=== PATIENT | female | born 1985 | race Caucasian/White ===

== ENCOUNTER 2020-01-22 10:29 | Outpatient (REF) | payer OTHER, SELFPAY | END 2020-01-22 10:30 | disposition home or self-care (01) | LOC: HO.LAB 10:29 | PROVIDERS: PCP Internal Medicine; Referring Provider Internal Medicine; Visit Provider Obstetrics & Gynecology | DX: R87.610 Atypical squamous cells of undetermined significance on cytologic smear of cervix (ASC-US) (principal) | CPT/HCPCS: 88305 ==

== ENCOUNTER → 2020-03-15 15:27 | Outpatient (BNVA) | payer OTHER, SELFPAY | PROVIDERS: Visit Provider Obstetrics & Gynecology | DX: Z76.89 Persons encountering health services in other specified circumstances (principal) ==

== ENCOUNTER → 2020-03-22 11:25 | Outpatient (BNVA) | payer OTHER, SELFPAY | PROVIDERS: Visit Provider Obstetrics & Gynecology | DX: Z76.89 Persons encountering health services in other specified circumstances (principal) ==

== ENCOUNTER → 2020-12-07 13:07 | Outpatient (BNV) | payer OTHER, SELFPAY | PROVIDERS: PCP Internal Medicine; Referring Provider Internal Medicine; Visit Provider Internal Medicine | DX: D50.0 Iron deficiency anemia secondary to blood loss (chronic) (principal); N92.0 Excessive and frequent menstruation with regular cycle | CPT/HCPCS: 99203; 99213; G2211 ==

== ENCOUNTER 2020-12-27 08:11 | Outpatient (REF) | payer OTHER, SELFPAY | END 2020-12-27 08:12 | disposition home or self-care (01) | LOC: HO.MDS 08:11 | PROVIDERS: PCP Internal Medicine; Visit Provider Internal Medicine | DX: D50.9 Iron deficiency anemia, unspecified (principal) | CPT/HCPCS: 96365; 96366; J1200; J1750; Q0163 ==

== ENCOUNTER 2021-02-15 11:53 | Outpatient (REF) | payer OTHER, SELFPAY ==
[2021-02-15 14:21] LABS: Hematocrit 39.8 % (37.0-47.0); Imm Gran Abs Auto 0.03 X10*3/uL (0.00-0.03); Imm Gran Pct Auto 0.5 % (0.0-0.4); MANUAL DIFF FLAG SCAN; SCAN SMEAR FLAG 1
[2021-02-15 14:23] LABS: Basophils Percent Auto 0.3 % (0-2); Eosinophils Absolute Auto 0.1 X10*3/uL (0.0-0.4); Eosinophils Percent Auto 0.8 % (0-4); Hemoglobin 12.4 g/dl (12.0-16.0); Lymphocytes Absolute Auto 0.8 X10*3/uL (1.2-4.9); Lymphocytes Percent Auto 12.1 % (20-40); Mean Corpuscular HGB Conc 31.2 g/dl (31.0-35.0); Mean Corpuscular Hemoglobin 24.9 pg (27.0-33.0); Mean Corpuscular Volume 80.1 fL (80.0-98.0); Mean Platelet Volume 11.3 fL (9.4-12.3); Monocytes Absolute Auto 0.3 X10*3/uL (0.1-1.2); Monocytes Percent Auto 4.7 % (2-11); Neutrophils Percent Auto 81.6 % (45-73); Platelet Count 219 X10*3/uL (160-400); Red Blood Count 4.97 X10*6/uL (4.20-5.50); Red Cell Distribution Width 21.1 % (11.0-16.0); White Blood Count 6.2 X10*3/uL (4.8-10.8)
[2021-02-15 14:24] LABS: PLT ABN DIST 1
[2021-02-15 14:41] LABS: Alanine Aminotransferase 13 U/L (0-31); Albumin Level 4.2 g/dL (3.5-5.0); Alkaline Phosphatase 67 U/L (39-117); Anion Gap 14 (12-20); Aspartate Amino Transferase 14 U/L (5-31); Bilirubin Total 0.4 mg/dL (0.0-1.0); Blood Urea Nitrogen 8 mg/dL (9-16); Calcium 9.4 mg/dL (8.4-10.2); Carbon Dioxide 23 mmol/L (22-29); Chloride 106 mmol/L (96-108); Estimated Glomerular Filt Rate > 60; Glucose Random 92 mg/dL (60-115); Iron 33 mcg/dL (30-160); Percent Iron Saturation 12 % (15-50); Potassium 4.3 mmol/L (3.3-5.1); Sodium 139 mmol/L (135-145); Total Iron Binding Capacity 269 mcg/dL (228-428); Unsaturated Iron Binding 236 ug/dL
[2021-02-15 14:55] LABS: SLIDE REVIEW VERIFIED; Vitamin B12 392 pg/mL (200-900)
[2021-02-15 15:05] LABS: TSH reflex Free T4 1.29 uIU/mL (0.32-4.0)
[2021-02-18 13:27] LABS: Vitamin D 25-OH, D2 <4 ng/mL; Vitamin D 25-OH, D3 22 ng/mL; Vitamin D 25-OH, Total 22 ng/mL (30-100)
== END 2021-02-15 11:54 | disposition home or self-care (01) ==
LOC: HO.HMGCLDS 11:53
PROVIDERS: PCP Internal Medicine; Visit Provider Obstetrics & Gynecology
DX: F41.1 Generalized anxiety disorder (principal); R53.83 Other fatigue; D64.9 Anemia, unspecified
CPT/HCPCS: 36415; 80053; 82306; 82607; 83540; 84443; 85025

== ENCOUNTER 2021-12-15 14:48 | Outpatient (REF) | payer OTHER, SELFPAY ==
[2021-12-15 15:47] LABS: Influenza A PCR NEGATIVE (Negative); Influenza B PCR NEGATIVE (Negative); Resp Syncy Virus RNA Qual PCR NEGATIVE (Negative); SARS COV2 PCR INHOUSE POSITIVE (Negative)
== END 2021-12-15 14:49 | disposition home or self-care (01) ==
LOC: HO.LNP 14:48
DX: Z20.822 Contact with and (suspected) exposure to COVID-19 (principal); J02.9 Acute pharyngitis, unspecified
CPT/HCPCS: 0241U

== ENCOUNTER 2022-05-25 09:47 | Emergency (ER) | payer OTHER, SELFPAY ==
--- NOTE | 2022-05-25 09:50 | ECG_ITS ---
Test Reason : chest pain Blood Pressure : / mmHG Vent. Rate : 074 BPM Atrial Rate : 074 BPM P-R Int : 108 ms QRS Dur : 080 ms QT Int : 354 ms P-R-T Axes : 026 042 022 degrees QTc Int : 392 ms Sinus rhythm with short WA Otherwise normal ECG No previous ECGs available Referred By: Generic ED Physician Electronically Signed By:Johnathan Black
[2022-05-25 09:57] VITALS: BP 127/73; PULSE 71; RESP 18; TEMP 36.6; O2SAT 98; BMI 39.9
[2022-05-25 10:27] LABS: Imm Gran Abs Auto 0.02 X10*3/uL (0.00-0.03); Mean Corpuscular Hemoglobin 17.7 pg (27.0-33.0); Red Cell Distribution Width 19.9 % (11.0-16.0); SCAN SMEAR FLAG 1
[2022-05-25 10:29] LABS: Basophils Percent Auto 0.4 % (0-2); Eosinophils Percent Auto 0.7 % (0-4); Hematocrit 30.5 % (37.0-47.0); Hemoglobin 8.5 g/dl (12.0-16.0); Imm Gran Pct Auto 0.4 % (0.0-0.4); Lymphocytes Absolute Auto 0.8 X10*3/uL (1.2-4.9); Lymphocytes Percent Auto 14.8 % (20-40); MANUAL DIFF FLAG SCAN; Mean Corpuscular HGB Conc 27.9 g/dl (31.0-35.0); Monocytes Absolute Auto 0.4 X10*3/uL (0.1-1.2); Neutrophils Absolute Auto 4.3 x10*3/uL (2.0-8.3); Neutrophils Percent Auto 76.7 % (45-73); Platelet Count 400 X10*3/uL (160-400); White Blood Count 5.6 X10*3/uL (4.8-10.8)
[2022-05-25 10:32] LABS: Mean Corpuscular Volume 63.5 fL (80.0-98.0); PLT ABN DIST 1
[2022-05-25 10:40] LABS: Appearance Urine Clear; Color Urine Yellow; Glucose Urine UA Negative (Negative); Leukocyte Esterase Urine Negative (Negative); Nitrite Urine Negative (Negative); PH 7.5 (5.0-9.0); Specific Gravity - Urine 1.015 (1.005-1.025); Urine Blood Negative (Negative); Urine Ketones Negative (Negative); Urine Protein Negative (Neg-Trace)
[2022-05-25 10:41] LABS: UPreg QC Valid YES; Urine Pregnancy NEGATIVE (NEGATIVE)
[2022-05-25 10:49] LABS: SLIDE REVIEW VERIFIED
[2022-05-25 10:58] LABS: Anion Gap 14 (12-20); Blood Urea Nitrogen 13 mg/dL (9-16); Calcium 9.2 mg/dL (8.4-10.2); Carbon Dioxide 23 mmol/L (22-29); Chloride 109 mmol/L (96-108); Creatinine Clr Calc Pharmacy 135.7; Estimated Glomerular Filt Rate > 60; Glucose Random 87 mg/dL (60-115); Potassium 4.2 mmol/L (3.3-5.1); Sodium 142 mmol/L (135-145)
[2022-05-25 11:09] LABS: Troponin-I High Sensitivity < 3.5 ng/L (<3.5-17.0)
[2022-05-25 11:14] LABS: B Type Natriuretic Peptide 20 pg/mL (<100)
--- NOTE | 2022-05-25 11:59 | ED_ITS ---
HPI - General Adult General Chief complaint: General Medical Stated complaint: sob, CP, swollen feet/ankles Time Seen by Provider: 05/25/22 11:40 Source: patient Mode of arrival: ambulatory Limitations: no limitations History of Present Illness HPI narrative: 37-year-old female with a history of anxiety, anemia who presents with complaints of intermittent chest pain, tingling and numbness, palpitations, visual disturbances for years. Patient reports for the last 6-8 weeks she has had bilateral leg swelling. She called her primary care doctor this morning for follow-up and was recommended to come to the ER for further evaluation. Patient reports that these symptoms occur while at rest. They are not exerti onal. They last for several seconds and self-resolved. She describes the chest pain as sharp radiating up to her left shoulder and left back. Patient reports that her eyes get blurry but when she blinks the blurriness goes away. Patient denies any associated shortness of breath, vomiting, diaphoresis. No family history of sudden cardiac . No history of OCP use. No recent travel or sick contact. No family history of DVT or PE. Patient reports she noticed this that both ankles are swollen after being on her feet all day at work. This is not when she wakes up. There is not any asso ciated redness, warmth. Patient reports several years ago when she was very anemic she had similar s ymptoms and all of her symptoms improved when she received an iron infusion Related Data Home Medications Medication Instructions Recorded Confirmed clobetasol 0.05 % topical cream 1 applic topical BID 01/22/20 04/30/21 Previous Rx's Medication Instructions Recorded mupirocin 2 % topical ointment 1 appl topical BID 15 days #22 04/30/21 grams Allergies Allergy/AdvReac Type Severity Reaction Status Date / Time bupropion [From Wellbutrin] AdvReac Chest Verified 12/15/21 12:36 discomfort, abdominal cramping sulfa Allergy Unknown hives Uncoded 12/15/21 12:36 control pills AdvReac Severe vomiting Uncoded 12/15/21 12:36 Review of Systems Review of Systems: Yes all other systems are reviewed and are negative Constitutional: Constitutional: Reports no additional constitutional complaints, Denies body ache(s), Denies chills, Denies fever(s), Denies headache(s) and Denies weakness Eyes: Eyes: Reports no additional eye complaints and Denies change in vision ENT: Reports system reviewed and no additional complaints, except as documented, Denies dizziness, Denies headache(s), Denies nasal congestion, Denies nasal discharge and Denies neck pain Cardiovascular: Cardiovascular: Reports no additional cardiovascular complaints, Reports chest pain, Reports leg edema, Reports palpitations and Denies dyspnea Respiratory: Respiratory: Reports no additional respiratory complaints, Denies cough and Denies dyspnea Gastrointestinal: Gastrointestinal: Reports no additional gastrointestinal complaints, Denies abdominal pain, Denies diarrhea, Denies nausea and Denies vomiting Genitourinary: Genitourinary: Reports no additional female genitourinary complaints and Denies urinary incontinence Musculoskeletal: Musculoskeletal: Reports no additional musculoskeletal complaints, Denies back pain, Denies arthralgias, Denies joint swelling, Denies neck pain, Reports numbness and Reports tingling Integumentary/Breasts: Skin/Breast: Reports system reviewed and no additional complaints, except as docu and Denies rash Neurologic: Reports system reviewed and no additional complaints, except as documented, Denies dizziness, Denies headache(s), Reports numbness, Reports tingling and Denies weakness Psychiatric: Psychiatric: Reports anxiety Endocrine: Endocrine: Reports palpitations PMFSH Past Medical History Attestation statement: The following information was validated with the patient. Source: old records reviewed and nursing notes reviewed Medical History Anemia Anxiety Depression Sore throat Surgical History History of Hx of lymph node excision Family History Family History Maternal Aunt Lung cancer Maternal Grandfather Lung cancer Maternal Grandmother Mental health disorder Substance use disorder Mother Mental health disorder High cholesterol Father Substance use disorder Social History Social History Household Members: Spouse Housing: House Alcohol intake: current Alcohol intake frequency: holidays/special occasions only Patient Tobacco Use Status: Never used Tobacco Smoked in Last 30 Days: No Second Hand Smoke Exposure: No Use of substances other than those prescribed or required for medical reasons: No Substance Use Type: Marijuana Advance Directives: No Advance Directives Information Provided: No Patient : No Current occupational status: employed Physical Exam ED Vital Signs: Vital Signs - 24 hr 05/25/22 09:57 Temperature 98 F Pulse Rate 71 Respiratory Rate 18 Blood Pressure 127/73 Pulse Oximetry 98 BMI result Body Mass Index 39.9 Const General: cooperative, healthy appearing, comfortable and no acute distress Orientation/consciousness: patient oriented x3 Limitations: no limitations HENMT Head: Yes normal to inspection Ears: hearing grossly normal bilaterally Eyes General: appearance normal, both eyes and all related structures Pupils: Equal, round and reactive pupils present Neck Neck: Yes normal visual inspection, Yes full ROM, Yes no lymphadenopathy and Yes no meningeal signs Chest Chest palpation & inspection: normal inspection of the chest Resp Effort & Inspection: normal respiratory effort Auscultation: clear to auscultation bilaterally Cardio Rate: regular rate Rhythm: regular rhythm Peripheral pulses: Peripheral pulses 2+ throughout GI Inspection: Yes normal to inspection Palpation (GI): Soft to palpation and nontender General: Yes no CVA tenderness Back/Spine/Pelvis Back: no CVA tenderness Thoracic/Lumbar Spine: thoracic and lumbar spine normal to inspection Skin General skin exam: no rashes or lesions noted Neuro General: patient oriented x3, moves all extremities and no meningeal signs Cranial nerves: Yes Equal, round and reactive pupils present Cognition (Neuro): normal cognition Gait exam (Neuro): Normal gait present Motor exam (neuro): 5/5 motor strength present throughout Sensory Exam: Normal double simultaneous stimulation for sensation Extrem General: Yes normal to inspection, Yes no pedal edema and Yes no calf tenderness Course Course Course Narrative: Labs show mild anemia. Likely patient will benefit from iron infusion. Patient reports she can take iron tablets due to side effects. Patient plans on following up with primary care doctor and will discuss this with them further. Additional labs and EKG are normal. Reviewed worrisome signs and symptoms of when to return to the emergency room. Comfortable plan for discharge home Medical Decision Making Medical Decision Making MDM Narrative: Is a 37-year-old female with history of anxiety and anemia who presents today to emergency room with complaints of intermittent symptoms of palpitations, chest pain, numbness/tingling/anxiety for years. Also bilateral lower leg swelling for 6-8 weeks which is worsened at night time after being on her feet at work. Patient reports she call the primary care was referred into the ER for further evaluation. Patient had labs, EKG at triage. Will review On exam lungs are clear. Vitals stable. I do not appreciate any leg swelling/redness/pain on exam. Patient reports similar symptoms when she was anemic in the past Differential Diagnosis Differential Diagnoses: The differential diagnosis associated with the presentation includes Anemia Less likely PE-perc 0 Less likely ACS or aortic dissection Lab Data MDM Lab Attestation statement: I reviewed the patient's lab results. 05/25/22 10:15 05/25/22 10:15 Labs: Lab Results 05/25/22 05/25/22 05/25/22 Range/Units 10:15 10:15 10:15 WBC 5.6 (4.8-10.8) X10*3/uL RBC 4.80 (4.20-5.50) X10*6/uL Hgb 8.5 L D (12.0-16.0) g/dl Hct 30.5 L D (37.0-47.0) % MCV 63.5 L (80.0-98.0) fL MCH 17.7 L (27.0-33.0) pg MCHC 27.9 L (31.0-35.0) g/dl RDW 19.9 H (11.0-16.0) % Plt Count 400 D (160-400) X10*3/uL MPV 10.0 (9.4-12.3) fL Immature Gran % (Auto) 0.4 (0.0-0.4) % Neut % (Auto) 76.7 H (45-73) % Lymph % (Auto) 14.8 L (20-40) % [place] % (Auto) 7.0 (2-11) % Eos % (Auto) 0.7 (0-4) % Baso % (Auto) 0.4 (0-2) % Lymph # (Auto) 0.8 L (1.2-4.9) X10*3/uL [place] # (Auto) 0.4 (0.1-1.2) X10*3/uL Eos # (Auto) 0.0 (0.0-0.4) X10*3/uL Baso # (Auto) 0.0 (0.0-0.2) X10*3/uL Abs Immat Gran (auto) 0.02 (0.00-0.03) X10*3/uL Absolute Neuts (auto) 4.3 (2.0-8.3) x10*3/uL Absolute Nucleated RBC 0.000 (0.0-0.012) X10*3/uL Nucleated RBC % (auto) 0.0 (0.0-0.2) /100WBC Smear Tech's Comments VERIFIED Sodium 142 (135-145) mmol/L Potassium 4.2 (3.3-5.1) mmol/L Chloride 109 H (96-108) mmol/L Carbon Dioxide 23 (22-29) mmol/L Anion Gap 14 (12-20) BUN 13 (9-16) mg/dL Creatinine 0.69 (0.5-1.4) mg/dL Estim Creat Clear Calc 135.7 Estimated GFR > 60 Random Glucose 87 (60-115) mg/dL Calcium 9.2 (8.4-10.2) mg/dL Troponin I High Sens < 3.5 (<3.5-17.0) ng/L B-Natriuretic Peptide (<100) pg/mL Urine Color Urine Appearance Urine pH (5.0-9.0) Ur Specific [place] (1.005-1.025) Urine Protein (Neg-Trace) mg/dL Urine Glucose (UA) (Negative) mg/dL Urine Ketones (Negative) mg/dL Urine Blood (Negative) Urine Nitrite (Negative) Ur Leukocyte Esterase (Negative) Urine Test (NEGATIVE) 05/25/22 05/25/22 05/25/22 Range/Units 10:15 10:15 10:15 WBC (4.8-10.8) X10*3/uL RBC (4.20-5.50) X10*6/uL Hgb (12.0-16.0) g/dl Hct (37.0-47.0) % MCV (80.0-98.0) fL MCH (27.0-33.0) pg MCHC (31.0-35.0) g/dl RDW (11.0-16.0) % Plt Count (160-400) X10*3/uL MPV (9.4-12.3) fL Immature Gran % (Auto) (0.0-0.4) % Neut % (Auto) (45-73) % Lymph % (Auto) (20-40) % [place] % (Auto) (2-11) % Eos % (Auto) (0-4) % Baso % (Auto) (0-2) % Lymph # (Auto) (1.2-4.9) X10*3/uL [place] # (Auto) (0.1-1.2) X10*3/uL Eos # (Auto) (0.0-0.4) X10*3/uL Baso # (Auto) (0.0-0.2) X10*3/uL Abs Immat Gran (auto) (0.00-0.03) X10*3/uL Absolute Neuts (auto) (2.0-8.3) x10*3/uL Absolute Nucleated RBC (0.0-0.012) X10*3/uL Nucleated RBC % (auto) (0.0-0.2) /100WBC Smear Tech's Comments Sodium (135-145) mmol/L Potassium (3.3-5.1) mmol/L Chloride (96-108) mmol/L Carbon Dioxide (22-29) mmol/L Anion Gap (12-20) BUN (9-16) mg/dL Creatinine (0.5-1.4) mg/dL Estim Creat Clear Calc Estimated GFR Random Glucose (60-115) mg/dL Calcium (8.4-10.2) mg/dL Troponin I High Sens (<3.5-17.0) ng/L B-Natriuretic Peptide 20 (<100) pg/mL Urine Color Yellow Urine Appearance Clear Urine pH 7.5 (5.0-9.0) Ur Specific [place] 1.015 (1.005-1.025) Urine Protein Negative (Neg-Trace) mg/dL Urine Glucose (UA) Negative (Negative) mg/dL Urine Ketones Negative (Negative) mg/dL Urine Blood Negative (Negative) Urine Nitrite Negative (Negative) Ur Leukocyte Esterase Negative (Negative) Urine Test NEGATIVE (NEGATIVE) Independent Interpretation I performed an independent interpretation of an: EKG Interpretation: I independently reviewed the EKG which shows sinus rhythm with a rate of 74, normal QRS, normal QT External Record Review External record reviewed: 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 Your hematocrit is 30.5. You would likely benefit from iron infusion. Please call your primary care doctor to set this up. Your EKG, full additional lab work are normal. Please continue to follow-up with PCP Prescriptions: No Action mupirocin 2 % ointment 1 appl topical BID 15 Days Qty: 22 0RF clobetasol 0.05 % cream 1 applic topical BID Referrals: Bud Santizo MD [Primary Care Provider] - 5 days Interventions: ED Discharge Assessment Last Done: 05/25/22 12:05 Discharge Date/Time: 05/25/22 12:06
== END 2022-05-25 12:06 | disposition home or self-care (01) ==
PROVIDERS: Emergency Provider Emergency Medicine; PCP Internal Medicine
DX: R06.02 Shortness of breath (principal); R07.89 Other chest pain; D64.9 Anemia, unspecified; Z79.899 Other long term (current) drug therapy
CPT/HCPCS: 36415; 80048; 81003; 81025; 83880; 84484; 85025; 93005; 99283; 99284

== ENCOUNTER 2022-06-07 13:01 | Outpatient (REF) | payer OTHER, SELFPAY ==
--- NOTE | ~2022-06-07 | XR_ITS ---
EXAMINATION: XR FOOT, RIGHT CLINICAL INFORMATION: Pain. COMPARISON: None TECHNIQUE: AP, lateral, and oblique views of the right foot. FINDINGS: The bones and soft tissues are normal. No fracture. Alignment is anatomic. Joint spaces are maintained. There is a small calcaneal heel enthesophyte. XR/XR foot RT 2V IMPRESSION: Small calcaneal heel enthesophyte. No visible acute fracture or dislocation seen. Small calcaneal heel enthesophyte, otherwise unremarkable right ankle exam.
== END 2022-06-07 13:02 | disposition home or self-care (01) ==
LOC: HO.HMGCX 13:01
PROVIDERS: PCP Internal Medicine; Visit Provider Internal Medicine
DX: M79.671 Pain in right foot (principal)
CPT/HCPCS: 73620

== ENCOUNTER 2022-06-19 10:29 | Outpatient (REF) | payer OTHER, SELFPAY | END 2022-06-19 10:30 | disposition home or self-care (01) | LOC: HO.MDS 10:29 | PROVIDERS: PCP Internal Medicine; Visit Provider Internal Medicine | DX: D50.9 Iron deficiency anemia, unspecified (principal) | CPT/HCPCS: J1756 ==

== ENCOUNTER 2022-06-26 10:32 | Outpatient (REF) | payer OTHER, SELFPAY | END 2022-06-26 10:33 | disposition home or self-care (01) | LOC: HO.MDS 10:32 | PROVIDERS: Visit Provider Internal Medicine | DX: O99.011 Anemia complicating pregnancy, first trimester (principal); D50.9 Iron deficiency anemia, unspecified; O26.851 Spotting complicating pregnancy, first trimester; Z3A.01 Less than 8 weeks gestation of pregnancy; Z32.01 Encounter for pregnancy test, result positive | CPT/HCPCS: 81025; 96365; 99212; J1756 ==

== ENCOUNTER 2022-06-26 12:36 | Outpatient (REF) | payer OTHER, SELFPAY ==
--- NOTE | ~2022-06-26 | US_ITS ---
EXAMINATION: US OBSTETRICAL ULTRASOUND CLINICAL INFORMATION: Spotting. COMPARISON: None available.. LMP: 05/17/2022. Gestational age by maternal dates is 5 weeks 5 days. Estimated date of delivery by maternal dates is 02/21/2023. TECHNIQUE: Routine Grayscale imaging of abdomen was performed. FINDINGS: There is a single intrauterine gestational sac with visible yolk sac, embryo/fetus, and cardiac activity. There is no significant subchorionic hemorrhage or hematoma. HR: 62 beats per minute. CRL (crown rump length): 0.22 cm (5 weeks and 6 days +/- 4 days). [place] (estimated date of delivery): 02/20/2023 +/- 4 days. MATERNAL ADNEXA: The right maternal ovary measures 3.1 x 2.1 x 1.7 cm. The left maternal ovary measures 2.8 x 2.5 x 2.0 cm. There is a corpus luteal cyst measuring 0.9 x 1.1 x 0.9 cm. There is no significant maternal adnexal mass. No maternal pelvic ascites. US/US OB pelvic and transvaginal IMPRESSION: 1. Single intrauterine gestation with ultrasound gestational age of 5 weeks and 6 days +/- 4 days. 2. Estimated date of delivery is 02/20/2023 +/- 4 days. 3. No maternal adnexal mass or pelvic ascites.
== END 2022-06-26 12:37 | disposition home or self-care (01) ==
LOC: HO.US 12:36
PROVIDERS: PCP Internal Medicine; Visit Provider Obstetrics & Gynecology
DX: O26.851 Spotting complicating pregnancy, first trimester (principal); O09.511 Supervision of elderly primigravida, first trimester
CPT/HCPCS: 76801; 76817

== ENCOUNTER 2022-07-03 10:34 | Outpatient (REF) | payer OTHER, SELFPAY | END 2022-07-03 10:35 | disposition home or self-care (01) | LOC: HO.MDS 10:34 | PROVIDERS: PCP Internal Medicine; Visit Provider Internal Medicine | DX: D50.9 Iron deficiency anemia, unspecified (principal) | CPT/HCPCS: 96365; J1756 ==

== ENCOUNTER 2022-07-10 12:10 | Outpatient (REF) | payer OTHER, SELFPAY | END 2022-07-10 12:11 | disposition home or self-care (01) | LOC: HO.MDS 12:10 | PROVIDERS: Visit Provider Internal Medicine | DX: D50.9 Iron deficiency anemia, unspecified (principal) | CPT/HCPCS: 96365; J1756 ==

== ENCOUNTER 2022-07-17 10:40 | Outpatient (REF) | payer OTHER, SELFPAY | END 2022-07-17 10:41 | disposition home or self-care (01) | LOC: HO.MDS 10:40 | PROVIDERS: Visit Provider Internal Medicine | DX: D50.9 Iron deficiency anemia, unspecified (principal) | CPT/HCPCS: 96365; J1756 ==

== ENCOUNTER 2022-07-25 10:53 | Outpatient (REF) | payer OTHER, SELFPAY | END 2022-07-25 10:54 | disposition home or self-care (01) | LOC: HO.MDS 10:53 | PROVIDERS: Visit Provider Internal Medicine | DX: D50.9 Iron deficiency anemia, unspecified (principal) | CPT/HCPCS: 96365; J1756 ==

== ENCOUNTER 2022-10-19 15:41 | Outpatient (AMB) | payer OTHER, SELFPAY ==
--- NOTE | 2022-10-19 15:44 | MHC.OFFVIS ---
Intake Vital Signs 10/19/22 15:47 Height 5 ft 5.5 in Weight 235 lb BMI 38.5 BP 122/76 Intake Visit Reasons: [employer] annual exam/irregular menses Intake Note: Heavy bleeding with periods Information Interpreted: non-clinical & clinical Sanitation Inspector: Sanitation Inspector Present (Heydi Guzman BEVERLY) Accompanied by: Self / Same As Patient Allergies bupropion [From Wellbutrin] Adverse Reaction (Verified 01/27/23 14:00) Chest discomfort, abdominal cramping sulfa Allergy (Unknown, Uncoded 01/27/23 14:00) hives control pills Adverse Reaction (Severe, Uncoded 01/27/23 14:00) vomiting Is last menstrual period known: Yes Last menstrual period: 09/27/22 HPI HPI Comments History of Present Illness Details The patient is presenting for annual exam c/o irregular bleeding associated with passage of blood clots and abdominal cramping. it started few months ago after medical termination of in 07/30 Last co testing was in 01/26 was ascus/HPV negative, followed by colpo biopsy which showed GUIDO 1 PFSH Medical History History of medical termination of Sore throat GUIDO I (cervical intraepithelial neoplasia I) Anemia Anxiety Depression Surgical History Hx of lymph node excision History of Family History Maternal Aunt Lung cancer Maternal Grandfather Lung cancer Maternal Grandmother Mental health disorder Substance use disorder Mother Mental health disorder High cholesterol Father Substance use disorder Social History Household Members: Spouse Housing: House Alcohol intake: current Alcohol intake frequency: holidays/special occasions only Patient Tobacco Use Status: Never used Tobacco e-Cigarette/Vaping Use: Never Used Second Hand Smoke Exposure: No Substance Use Type: Marijuana service: No Current occupational status: employed Cognitive needs: No Hearing needs: No Vision needs: No Female Reproductive History Menstrual Age of Menarche: 10 Duration of menses: >10 days Date of last menstrual period: 09/27/22 control method: condoms Total pregnancies: 5 Full term: 2 Number of Living Children: 2 Ab induced: 2 Ab spontaneous: 1 Date of last pap smear: 11/13/19 Review of Systems Const All systems reviewed & are unremarkable except as noted in HPI and below Card Reports as per HPI Resp Reports as per HPI GI Reports as per HPI and Reports no additional complaints Reports as per HPI Physical Exam Vital Signs: Last Vital Signs BP 122/76 10/19/22 15:47 BMI result Body Mass Index 38.5 Const General: cooperative, healthy appearing and comfortable Chest Chest palpation & inspection: normal inspection of the chest and normal palpation of entire chest wall Breast/axilla inspection: normal inspection of the breasts and normal inspection of the axillae Breast/axilla palpation: normal palpation of the breasts, normal palpation of the axillae and no axillary lymphadenopathy Resp Effort & Inspection: normal respiratory effort Auscultation: clear to auscultation bilaterally Percussion: percussion normal Cardio Palpation: normal PMI Rate: regular rate Rhythm: regular rhythm Heart sounds: no murmurs and no rubs Peripheral pulses: Peripheral pulses 2+ throughout GI Inspection: Yes normal to inspection Palpation (GI): Soft to palpation, nontender, no guarding, not rigid and No hepatosplenomegaly present Percussion: Yes normal to percussion Auscultation: normal bowel sounds Rectal Exam - Female: deferred General: Yes bladder normal to palpation External Female Exam: No lesion Speculum Exam - Vagina: normal appearance of the vagina, normal palpation, normal vaginal discharge and not erythematous Speculum Exam - Cervix: normal appearance of the cervix and normal palpation Bimanual exam- vagina & uterus: normal bimanual exam, normal palpation, uterine size normal, bladder normal to palpation, consistency normal and normal palpation Bimanual Exam- Adnexa, other: normal adnexae, no masses and no tenderness Results AMB Test Urine AMB Test Urine Negative Last Edit by Heydi Guzman CMA on 10/19/22 16:14 Results Reviewed Results Reviewed: Laboratory Last Values Tst Clinic Negative 10/19/22 16:05 Assessment & Plan Assessment & Plan (1) Well woman exam: Comment: GUIDO 1 in 01/26 Code(s): Z01.419 - Encounter for gynecological examination (general) (routine) without abnormal findings Plan: Cotesting done. Counseled the patient about the recommended dietary allowance of 1000 mg of Calcium & 600 IU of vitamin D. The patient was instructed to perform monthly self-breast exams and to schedule an annual exam in a year; All questions answered and the patient verbalized understanding. Instructed the patient to schedule annual exam in a year (2) Abnormal uterine bleeding (AUB): Code(s): N93.9 - Abnormal uterine and vaginal bleeding, unspecified Plan: Urine test done in the office was negative. Co testing done, GC and chlamydia taken CBC, TSH, HCG, and pelvic ultrasound ordered. Discussed with the patient the different causes of abnormal bleeding including thyroid disorders, uterine and ovarian pathology, endometrial hyperplasia, carcinoma and other potential causes. Discussed with the patient the work up including CBC (to r/o anemia), TSH, pelvic Ultrasound, endometrial biopsy to r/o endometrial pathology. All questions answered and the patient verbalized understanding. Instructed the patient to schedule an appointment for an endometrial biopsy in 2 weeks. Orders: Orders Pap Smear 10/19/22 Z01.419 - Encounter for gynecological examination (general) (routine) without abnormal findings Complete Blood Count no Diff 10/19/22 N93.9 - Abnormal uterine and vaginal bleeding, unspecified CT NG by PCR 10/19/22 Z01.419 - Encounter for gynecological examination (general) (routine) without abnormal findings US pelvic and transvaginal 10/19/22 N93.9 - Abnormal uterine and vaginal bleeding, unspecified Prolactin 10/19/22 N93.9 - Abnormal uterine and vaginal bleeding, unspecified TSH reflex Free T4 10/19/22 N93.9 - Abnormal uterine and vaginal bleeding, unspecified HCG Quantitative 10/19/22 N93.9 - Abnormal uterine and vaginal bleeding, unspecified AMB HCG Urine Test 10/19/22 Z32.02 - Encounter for test, result negative Coding Level of Care Code Est Pt Level 3 (60344) Est Pt Prev Care 18-39y(70657) Diagnoses Well woman exam Z01.419 Abnormal uterine bleeding (AUB) N93.9
[2022-10-19 15:47] VITALS: BP 122/76; BMI 38.5
== END 2022-10-19 16:14 | disposition home or self-care (01) ==
LOC: HO.HWS 15:41
PROVIDERS: PCP Internal Medicine; Visit Provider Obstetrics & Gynecology
DX: Z01.419 Encounter for gynecological examination (general) (routine) without abnormal findings (principal); N93.9 Abnormal uterine and vaginal bleeding, unspecified
CPT/HCPCS: 99213; 99395

== ENCOUNTER 2022-10-19 15:41 | Outpatient (REF) | payer OTHER, SELFPAY ==
[2022-10-27 08:59] LABS: HPV mRNA E6/E7 rflx Not Detected (Not Detected)
== END 2022-10-19 15:42 | disposition home or self-care (01) ==
LOC: HO.LNP 15:41
PROVIDERS: PCP Internal Medicine; Visit Provider Obstetrics & Gynecology
DX: Z01.419 Encounter for gynecological examination (general) (routine) without abnormal findings (principal); Z11.51 Encounter for screening for human papillomavirus (HPV); N93.9 Abnormal uterine and vaginal bleeding, unspecified
CPT/HCPCS: 81025; 87624; 88142; 99212

== ENCOUNTER 2022-10-19 16:19 | Outpatient (REF) | payer OTHER, SELFPAY ==
[2022-10-19 18:22] LABS: Hematocrit 33.5 % (37.0-47.0); Hemoglobin 10.2 g/dl (12.0-16.0); Mean Corpuscular HGB Conc 30.4 g/dl (31.0-35.0); Mean Corpuscular Hemoglobin 23.3 pg (27.0-33.0); Mean Corpuscular Volume 76.5 fL (80.0-98.0); Mean Platelet Volume 9.7 fL (9.4-12.3); Platelet Count 354 X10*3/uL (160-400); Red Blood Count 4.38 X10*6/uL (4.20-5.50); Red Cell Distribution Width 15.4 % (11.0-16.0); White Blood Count 6.7 X10*3/uL (4.8-10.8)
[2022-10-19 18:53] LABS: HCG Quantitative < 2 mIU/mL
[2022-10-20 10:38] LABS: CT PCR NOT DETECTED (Not Detect.); NG PCR NOT DETECTED (Not Detect.)
[2022-10-22 21:44] LABS: Prolactin 17.4 ng/mL
== END 2022-10-19 16:20 | disposition home or self-care (01) ==
LOC: HO.LAB 16:19
PROVIDERS: PCP Internal Medicine; Visit Provider Obstetrics & Gynecology
DX: Z01.419 Encounter for gynecological examination (general) (routine) without abnormal findings (principal); N93.9 Abnormal uterine and vaginal bleeding, unspecified
CPT/HCPCS: 0353U; 36415; 84146; 84443; 84702; 85027

== ENCOUNTER 2022-11-01 | Outpatient (REF) | payer OTHER, SELFPAY ==
[2022-11-02 17:48] LABS: CT PCR NOT DETECTED (Not Detect.); NG PCR NOT DETECTED (Not Detect.)
== END 2022-11-01 00:01 | disposition home or self-care (01) ==
LOC: HO.LNP
PROVIDERS: Visit Provider Obstetrics & Gynecology
DX: Z13.89 Encounter for screening for other disorder (principal)
CPT/HCPCS: 0353U

== ENCOUNTER 2022-11-03 14:08 | Outpatient (REF) | payer OTHER, SELFPAY ==
--- NOTE | ~2022-11-03 | US_ITS ---
EXAMINATION: US PELVIS CLINICAL INFORMATION: Abnormal uterine and vaginal bleeding. COMPARISON: Pelvic ultrasound 11/17/2019. TECHNIQUE: Ultrasound of the pelvis is performed using both transabdominal and transvaginal transducers along with Doppler. Transvaginal imaging is performed due to inadequate visualization transabdominally. FINDINGS: Uterus: The uterus is anteverted and measures 10.3 x 5.5 x 6.8 cm. Nabothian cyst in the cervix. The double wall endometrial thickness is 15 mm. The uterus is smooth in contour and has normal myometrial echogenicity. No visible fibroid. Adnexa: Both ovaries are visualized. There is normal color flow to the adnexa. There is no ovarian torsion. There is no pelvic ascites or fluid collection. Right ovary measures 2.9 x 2.2 x 2.3 cm. Volume 7.7 mL. Left ovary measures 2.7 x 1.8 x 2.8 cm. Volume 7.1 mL. US/US pelvic and transvaginal IMPRESSION: Unremarkable pelvic ultrasound.
== END 2022-11-03 14:09 | disposition home or self-care (01) ==
LOC: HO.US 14:08
PROVIDERS: PCP Internal Medicine; Visit Provider Obstetrics & Gynecology
DX: N93.9 Abnormal uterine and vaginal bleeding, unspecified (principal)
CPT/HCPCS: 76830; 76856

== ENCOUNTER 2023-01-27 13:57 | Outpatient (AMB) | payer OTHER, SELFPAY ==
--- NOTE | 2023-01-27 13:59 | AM.OFFWIN_ITS ---
Intake Vital Signs 01/27/23 13:59 Height 5 ft 5 in Intake Visit Reasons: EP, UTI? Intake Note: Pt is here today UTI sx's Patient Tobacco Use Status: Never used Tobacco Allergies bupropion [From Wellbutrin] Adverse Reaction (Verified 01/27/23 14:00) Chest discomfort, abdominal cramping sulfa Allergy (Unknown, Uncoded 01/27/23 14:00) hives control pills Adverse Reaction (Severe, Uncoded 01/27/23 14:00) vomiting HPI HPI Comments History of Present Illness Details 37-year-old female history of anxiety an d anemia presents with urinary frequency, urgency, dysuria for the past few weeks worsening over the past few days concern she may have UTI. Denies flank pain, fevers, chills, nausea, vomiting, abdominal pain, headache, vision changes, dizziness, chest pain shortness of breath Physical exam benign Likely UTI versus cystitis. Unlikely pyelo, obstructive uropathy, kidney stone. No signs of acute abdomen. Plan will obtain a urine. Educated patient on diagnosis and treatment plan, answered all question, patient verbalizes understanding. At this time patient will be discharged home, advised to return with new or worsening symptoms. Educated on worrisome signs and symptoms and when to return. At this time I feel comfortable discharge home. [facility] Medical History History of medical termination of Sore throat GUIDO I (cervical intraepithelial neoplasia I) Anemia Anxiety Depression Surgical History Hx of lymph node excision History of Family History Maternal Aunt Lung cancer Maternal Grandfather Lung cancer Maternal Grandmother Mental health disorder Substance use disorder Mother Mental health disorder High cholesterol Father Substance use disorder Social History Household Members: Spouse Housing: House Alcohol intake: current Alcohol intake frequency: holidays/special occasions only Patient Tobacco Use Status: Never used Tobacco e-Cigarette/Vaping Use: Never Used Second Hand Smoke Exposure: No Substance Use Type: Marijuana service: No Current occupational status: employed Cognitive needs: No Hearing needs: No Vision needs: No Female Reproductive History Menstrual Age of Menarche: 10 Review of Systems Const Details: Constitutional : No Weight loss, No Fever, No Chills, No Fatigue, No Malaise ENT/Mouth : No sore throat, No Rhinorrhea Eyes: No Eye Pain, No Swelling, No Redness Cardiovascular : No Chest Pain, No SOB, No Dyspnea on Exertion, No Orthopnea, No Edema, No Palpitations Respiratory : No Cough, No Sputum, No Wheezing Gastrointestinal : No Nausea, No Vomiting, No Diarrhea, No Constipation, No abdominal Pain, No Hematochezia, No Melena Genitourinary : + Dysuria, + Urinary Frequency, No Hematuria, Musculoskeletal : No joint pain, No Myalgias, No Joint Swelling Skin : No Skin Lesions, No rash Neuro : No Weakness, No Numbness, No Dizziness, No Headache Psych : No Anxiety/Panic, No Depression All other systems reviewed and are negative All systems reviewed & are unremarkable except as noted in HPI and below Physical Exam Vital Signs: vss Appearance: Alert.? Oriented X3.? No acute distress.? Head: Normocephalic, atraumatic, no step-offs or deformities CVS: Normal heart rate and rhythm.? Pulses normal.? Respiratory: No respiratory distress.? Breath sounds normal.? Abdomen: Soft and nontender.? Skin: Skin warm and dry.? Normal skin color.? Normal skin turgor.? Extremities: No lower extremity edema.? No calf ttp. 5/5 strength to bilateral upper and lower extremities Back: No CVA tenderness bilaterally Neuro: Oriented X 3.? No motor deficit.? No sensory deficit. CN 2-12 intact Results AMB Urinalysis, Automated UA Leukoctes 500 Bozena/uL Last Edit by Belen Garcia CMA on 01/27/23 14:07 UA Nitrite Negative Last Edit by Belen Garcia CMA on 01/27/23 14:07 UA Urobilinogen 0.2 mg/dL Last Edit by Belen Garcia CMA on 01/27/23 14:07 UA Protein 0 mg/dL Last Edit by Belen Garcia CMA on 01/27/23 14:07 UA pH 6.0 Last Edit by Belen Garcia CMA on 01/27/23 14:07 UA Blood 0 Tommy/uL Last Edit by Belen Garcia CMA on 01/27/23 14:07 UA Specific Logan 1.030 Last Edit by Belen Garcia CMA on 01/27/23 14:07 UA Ketone Negative Last Edit by Belen Garcia CMA on 01/27/23 14:07 UA Bilirubin 0 mg/dL Last Edit by Belen Garcia CMA on 01/27/23 14:07 UA Glucose 0 mg/dL Last Edit by Belen Garcia CMA on 01/27/23 14:07 Results Reviewed Results Reviewed: Laboratory Last Values Urine pH (Auto) 6.0 01/27/23 13:58 Specific Logan (Auto) 1.030 01/27/23 13:58 Urine Protein (Auto) 0 mg/dL 01/27/23 13:58 Glucose (UA)(Auto) 0 mg/dL 01/27/23 13:58 Urine Ketones (Auto) Negative 01/27/23 13:58 Urine Blood (Auto) 0 Tommy/uL 01/27/23 13:58 Urine Nitrite (Auto) Negative 01/27/23 13:58 Urine Bilirubin (Auto) 0 mg/dL 01/27/23 13:58 Urine Urobilinogen (Auto) 0.2 mg/dL 01/27/23 13:58 Leukocyte Esterase (Auto) 500 Bozena/uL 01/27/23 13:58 Assessment & Plan Assessment & Plan (1) Urinary tract infection: Code(s): N39.0 - Urinary tract infection, site not specified Plan Take your medications as prescribed. If you were prescribed antibiotics today, it is important that you take your medication to their entirety, do not skip any doses, do not finish them early. Follow-up with your primary care provider this week. Return to the emergency department with new or worsening symptoms. Such as fevers, chills, chest pain, shortness of breath, nausea, vomiting, dizziness, headache, vision changes, lethargy In case of emergency call 911 Orders: Orders AMB Urinalysis Automated Today Z13.9 - Encounter for screening, unspecified Medications: New cefuroxime axetil 250 mg PO BID 14 tabs 0RF 7 days phenazopyridine (Pyridium) 200 mg PO TID 6 tabs 0RF 6 doses Coding Level of Care Code Est Pt Level 3 (17871) Diagnoses Urinary tract infection N39.0
== END 2023-01-27 14:58 | disposition home or self-care (01) ==
PROVIDERS: PCP Internal Medicine; Visit Provider Physician Assistant
DX: N39.0 Urinary tract infection, site not specified (principal); R30.0 Dysuria
CPT/HCPCS: 81003; 99051; 99213

== ENCOUNTER 2023-03-08 12:03 | Outpatient (AMB) | payer OTHER, SELFPAY ==
--- NOTE | 2023-03-08 12:44 | MHC.OFFVIS ---
Intake Vital Signs 03/08/23 12:45 Height 5 ft 5 in Weight 233 lb 11.04 oz BMI 38.9 BP 120/72 Intake Visit Reasons: EMB/Utrasound follow up Allergies bupropion [From Wellbutrin] Adverse Reaction (Verified 01/27/23 14:00) Chest discomfort, abdominal cramping sulfa Allergy (Unknown, Uncoded 01/27/23 14:00) hives control pills Adverse Reaction (Severe, Uncoded 01/27/23 14:00) vomiting HPI HPI Comments History of Present Illness Details Presenting for EMB PFSH Medical History History of medical termination of Sore throat GUIDO I (cervical intraepithelial neoplasia I) Anemia Anxiety Depression Surgical History Hx of lymph node excision History of Family History Maternal Aunt Lung cancer Maternal Grandfather Lung cancer Maternal Grandmother Mental health disorder Substance use disorder Mother Mental health disorder High cholesterol Father Substance use disorder Social History Household Members: Spouse Housing: House Alcohol intake: current Alcohol intake frequency: holidays/special occasions only Patient Tobacco Use Status: Never used Tobacco e-Cigarette/Vaping Use: Never Used Second Hand Smoke Exposure: No Substance Use Type: Marijuana service: No Current occupational status: employed Cognitive needs: No Hearing needs: No Vision needs: No Female Reproductive History Menstrual Age of Menarche: 10 Physical Exam Vital Signs: Last Vital Signs BP 120/72 03/08/23 12:45 BMI result Body Mass Index 38.9 Office Procedures Endometrial Biopsy Details: The patient was counseled regarding the indication and benefits of endometrial sampling to rule out endometrial pathology including not limited to endometrial hyperplasia or endometrial cancer and others; The alternatives (Either do nothing vs. hysteroscopy D&C) & the risks were discussed with the patient including but not limited: pain, uterine perforation, bleeding, infection, possible injury to bladder, bowel, ureter, possible need for blood transfusion with all its possible risks. The patient verbalized understanding all questions answered and signed consent. Urine test done in the office was negative The patient was placed into the dorsal lithotomy position; a speculum was inserted in the vagina. Using aseptic technique for the procedure, the cervix was cleansed with Betadine. The anterior lip of the cervix was grasped with a single tooth tenaculum. The uterus was sounded to 7 cm with a 4 mm Pipelle was used. Tissues samples were obtained and placed in formalin, in a patient labeled container and sent to the pathology department. At the end of the procedure, there was minimal bleeding noted The patient tolerated the procedure well and was discharged in good condition with the following instructions: Nothing in the vagina until the bleeding stops. No sex until the bleeding stops, to call if any of the following occurs: fever (>100.4), flu-like symptoms, abdominal pain, heavy bleeding, four smelling vaginal discharge. The patient was instructed to schedule a Follow up appointment in 2 weeks to discuss pathology results of the biopsy and treatment options. This note was generated with a voice recognition program. Some errors may have been overlooked during the review of this note. Sometimes these errors may affect the content or meaning of a given sentence. 60139-P[facility]awfhif[place] Biopsy Results AMB Test Urine AMB Test Urine Negative Last Edit by Heydi Guzman CMA on 03/08/23 12:57 Assessment & Plan Assessment & Plan (1) Abnormal uterine bleeding (AUB): Code(s): N93.9 - Abnormal uterine and vaginal bleeding, unspecified Plan: EMB done, see procedure note Orders: Orders AMB HCG Urine Test Today Z32.02 - Encounter for test, result negative Surgical Today N93.9 - Abnormal uterine and vaginal bleeding, unspecified AMB Endometrial Biopsy Today N93.9 - Abnormal uterine and vaginal bleeding, unspecified Coding Level of Care Code Procedure Only Diagnoses Abnormal uterine bleeding (AUB) N93.9 CPT Codes Endometrial Biopsy - CPT: 88279-Sriyecqylsp Biopsy ([id number])
[2023-03-08 12:45] VITALS: BP 120/72; BMI 38.9
== END 2023-03-08 13:07 | disposition home or self-care (01) ==
LOC: HO.HWS 12:03
PROVIDERS: PCP Internal Medicine; Visit Provider Obstetrics & Gynecology
DX: N93.9 Abnormal uterine and vaginal bleeding, unspecified (principal); Z32.02 Encounter for pregnancy test, result negative
CPT/HCPCS: 58100

== ENCOUNTER 2023-03-08 12:03 | Outpatient (REF) | payer OTHER, SELFPAY | END 2023-03-08 12:04 | disposition home or self-care (01) | LOC: HO.LNP 12:03 | PROVIDERS: PCP Internal Medicine; Visit Provider Obstetrics & Gynecology | DX: Z32.02 Encounter for pregnancy test, result negative (principal); N93.9 Abnormal uterine and vaginal bleeding, unspecified | CPT/HCPCS: 58100; 81025; 88305 ==

== ENCOUNTER → 2023-03-13 15:57 | Outpatient (BNVA) | payer OTHER, SELFPAY | PROVIDERS: PCP Internal Medicine; Visit Provider Obstetrics & Gynecology | DX: O07.4 Failed attempted termination of pregnancy without complication (principal) | CPT/HCPCS: 99212 ==

== ENCOUNTER 2023-03-16 07:04 | Day surgery (SDC) | payer OTHER, SELFPAY ==
--- NOTE | 2023-03-15 09:46 | HO.ANESPROP2 ---
Documented by User: Merari Haddad NP 03/15/23 09:47 HPI - Anesthesia Eval Consult details Narrative: 37yo F for D&C Suction PMFSH Active Problems Active Problems: All Active Problems (Updated 03/13/23 @ 16:20 by Mark Monroe MD) Retained products of conception after induced termination of (Acute) Abnormal uterine bleeding (AUB) (Acute) Spotting in first trimester (Acute) Well woman exam (Acute) Foot pain (Acute) Hospital discharge follow-up (Acute) Endometriosis (Acute) Dysfunctional uterine bleeding (Acute) Iron deficiency (Acute) Sore throat (Acute) Ingrown left greater toenail (Acute) ASCUS of cervix with negative high risk HPV (Acute) Menorrhagia (Acute) Tired (Acute) Fatigue (Acute) Anxiety, generalized (Acute) Anemia (Chronic) Difficulty concentrating (Acute) Past Medical History Medical History History of medical termination of Sore throat GUIDO I (cervical intraepithelial neoplasia I) Anemia Anxiety Depression Family History Family History Maternal Aunt Lung cancer Maternal Grandfather Lung cancer Maternal Grandmother Mental health disorder Substance use disorder Mother Mental health disorder High cholesterol Father Substance use disorder Surgical History Surgical History Hx of lymph node excision History of Social History Social History Household Members: Spouse Housing: House Alcohol intake: current Alcohol intake frequency: holidays/special occasions only Patient Tobacco Use Status: Never used Tobacco e-Cigarette/Vaping Use: Never Used Second Hand Smoke Exposure: No Substance Use Type: Marijuana service: No Current occupational status: employed Cognitive needs: No Hearing needs: No Vision needs: No Meds Allergies Allergy/AdvReac Type Severity Reaction Status Date / Time bupropion [From Wellbutrin] AdvReac Chest Verified 03/13/23 16:19 discomfort, abdominal cramping sulfa Allergy Unknown hives Uncoded 03/13/23 16:19 control pills AdvReac Severe vomiting Uncoded 03/13/23 16:19 Home Medications Medication Instructions Recorded Confirmed Last Taken Type cefuroxime axetil 250 mg tablet 250 mg PO BID 03/13/23 Unknown History prochlorperazine maleate 5 mg mg PO 03/13/23 Unknown History tablet venlafaxine 37.5 mg tablet 37.5 mg PO BID 03/13/23 Unknown History Assessment and Plan Assessment Anesthesia Assessment: Chart Reviewed Documented by User: Shant Valenzuela MD 03/16/23 08:26 PMFSH Past Medical History Medical History History of medical termination of Sore throat GUIDO I (cervical intraepithelial neoplasia I) Anemia Anxiety Depression Patient : No Family History Family History Maternal Aunt Lung cancer Maternal Grandfather Lung cancer Maternal Grandmother Mental health disorder Substance use disorder Mother Mental health disorder High cholesterol Father Substance use disorder Family history of problems with anesthesia: No Surgical History Surgical History Hx of lymph node excision History of History of Problems with Anesthesia: No Social History Social History Household Members: Spouse Housing: House Alcohol intake: current Alcohol intake frequency: holidays/special occasions only Patient Tobacco Use Status: Never used Tobacco e-Cigarette/Vaping Use: Never Used Second Hand Smoke Exposure: No Substance Use Type: Marijuana service: No Current occupational status: employed Cognitive needs: No Hearing needs: No Vision needs: No Meds Allergies Allergy/AdvReac Type Severity Reaction Status Date / Time bupropion [From Wellbutrin] AdvReac Chest Verified 03/13/23 16:19 discomfort, abdominal cramping sulfa Allergy Unknown hives Uncoded 03/13/23 16:19 control pills AdvReac Severe vomiting Uncoded 03/13/23 16:19 Home Medications Medication Instructions Recorded Confirmed Last Taken Type cefuroxime axetil 250 mg tablet 250 mg PO BID 03/13/23 Unknown History prochlorperazine maleate 5 mg mg PO 03/13/23 Unknown History tablet venlafaxine 37.5 mg tablet 37.5 mg PO BID 03/13/23 Unknown History Exam Airway Mallampati Class: II TM Dist: >3cm Neck ROM: Full Loose/Missing/Broken Teeth: No Heart: ok Lungs: ok Assessment and Plan Assessment Anesthesia Assessment: Anesthesia Plan Discussed Final Anesthetic Review Family History of Problems with Anesthesia: No History of Problems with Anesthesia: No NPO: Yes ASA Class: II Final Preanesthetic Review: No Changes in Pt Med Stat, Meds/Allgs Chart Reviewed, Consent Obtained/Reviewed and Anes Risks/Benef Reviewed Patient Risk: Intermediate Procedure Risk: Low Anesthetic Plan Anesthetic Plan: GA and Agree w/ Assess. and Plan Disposition: Standard PACU
[2023-03-16 07:13] VITALS: BMI 38.1
[2023-03-16 07:41] LABS: UPreg QC Valid YES; Urine Pregnancy NEGATIVE (NEGATIVE)
[2023-03-16 07:43] VITALS: BP 130/87; PULSE 72; RESP 16; TEMP 36.8; O2SAT 98
--- NOTE | 2023-03-16 08:02 | MHC.SHP ---
Pre-Procedural Eval Section A Date of Service: 03/16/23 The patient is an INPATIENT: No Changes since office visit: No Cold of Flu in the past 2 weeks, No New Medical Problems, No Changes in Medication and No Patient answered all questions The History & Physical has been completed within 30 days and I have reviewed it.: Yes Section B Chief Complaint: Failed attempted termination D&C in OR Allergies: Allergies Allergy/AdvReac Type Severity Reaction Status Date / Time bupropion [From Wellbutrin] AdvReac Chest Verified 03/13/23 16:19 discomfort, abdominal cramping sulfa Allergy Unknown hives Uncoded 03/13/23 16:19 control pills AdvReac Severe vomiting Uncoded 03/13/23 16:19 Plan Diagnosis/Plan: Unchanged I have reviewed the history and physical and performed a pertinent physical examination on my patient. No changes have occurred unless specified. Time Spent With Patient Time: Total time managing care of this patient today ____ minutes.
[2023-03-16] MEDS: Lactated Ringers 1,000 ML 100 ML IVCONT (08:11)
--- NOTE | 2023-03-16 08:56 | P.BOP_ITS ---
Brief Operative Note Date of Service: 03/16/23 Pre-op diagnosis: Retained products of conception Post-op diagnosis: same Procedure: Suction D&C under ultrasound guidance Surgeon: Mark Monroe MD Anesthesia: GLMA Was an Nursing Informatics Analyst used for this Procedure?: No Estimated blood loss (mL): 100 Pathology: other (Endometrial scrapings) Condition: stable Disposition: PACU
--- NOTE | 2023-03-16 08:56 | W.PM.OPN ---
Operative Note Operative Note Date of Service: 03/16/23 Narrative: Preop diagnosis: Retained products of conception Operation: suction D and C under ultrasound guide Postop diagnosis: The same EBL: Minimal Anesthesia: MAC Capsule Filling Machine Operator: None Pathology: Endometrial scrapings Procedure: The patient was put in a dorsal distal mid position was scrubbed and draped in the usual sterile fashion. A sterile speculum was inserted inside the patient's vagina the anterior lip of the cervix was grasped with single-tooth tenaculum the cervix was dilated up to 7 mm. Under ultrasonographic guidance flexible 7. Suction tip was introduced inside the patient ran cavity till the fundus was hit then turning the suction 360 degrees around products of conception was sucked out toward the uterine cavity. The suction tip was taken out of the patient uterine cavity sharp curettings was followed in 4 quadrants of the uterus till a gritty feeling was felt. The suction tip was reintroduced under ultrasonographic guidance and intrauterine blood was sucked. The suction tip was taken out. Single-tooth tenaculum was removed hemostasis assured using pressure. The patient tolerated the procedure well and was transferred to the PACU in a stable condition.
[2023-03-16 09:11] VITALS: BP 115/72; PULSE 63; RESP 16; TEMP 36.8; O2SAT 97
[2023-03-16 09:16] VITALS: BP 108/64; PULSE 66; RESP 16; O2SAT 100
[2023-03-16 09:21] VITALS: BP 94/44; PULSE 73; RESP 16; O2SAT 100
[2023-03-16 09:26] VITALS: BP 108/49; PULSE 52; RESP 16; O2SAT 100
[2023-03-16 09:41] VITALS: BP 103/87; PULSE 53; RESP 16; TEMP 36.8; O2SAT 100
== END 2023-03-16 10:02 | disposition home or self-care (01) ==
PROVIDERS: PCP Internal Medicine; Visit Provider Obstetrics & Gynecology
PROC: (CPT 59820; principal; 2023-03-16 08:30)
DX: O07.4 Failed attempted termination of pregnancy without complication (principal); N93.9 Abnormal uterine and vaginal bleeding, unspecified; E61.1 Iron deficiency; Z79.899 Other long term (current) drug therapy; F12.90 Cannabis use, unspecified, uncomplicated
CPT/HCPCS: 59820; 76998; 81025; 88305; J1885; J2250; J2405; J2704; J3010

== ENCOUNTER → 2023-03-16 07:04 | Outpatient (BNV) | payer OTHER, SELFPAY | PROVIDERS: PCP Internal Medicine; Visit Provider Obstetrics & Gynecology | DX: N93.9 Abnormal uterine and vaginal bleeding, unspecified (principal) | CPT/HCPCS: 58558 ==

== ENCOUNTER 2023-03-17 11:34 | Outpatient (AMB) | payer OTHER, SELFPAY ==
[2023-03-17 12:53] VITALS: BP 108/70; PULSE 73; TEMP 37; O2SAT 99; BMI 39.0
--- NOTE | 2023-03-17 12:53 | AM.OFFWIN_ITS ---
Intake Vital Signs 03/17/23 12:53 Height 5 ft 4 in Weight 227 lb BMI 39.0 BP 108/70 Blood Pressure Location Rt brachial Position Sitting Pulse 73 Pulse Source Pulse Oximeter Temp 98.6 F Temp Source Oral Pulse Oximetry (%) 99 Intake Visit Reasons: EP, left elbow swelling Intake Note: Pt is here today c/o Lt elbow swelling: no injury noted Patient Tobacco Use Status: Never used Tobacco Allergies bupropion [From Wellbutrin] Adverse Reaction (Verified 03/17/23 12:53) Chest discomfort, abdominal cramping sulfa Allergy (Unknown, Uncoded 03/17/23 12:53) hives control pills Adverse Reaction (Severe, Uncoded 03/17/23 12:53) vomiting Do you need a note to return to daycare/school/sports/work: No HPI HPI Comments History of Present Illness Details 37-year-old female who presents for uppe r left arm swelling. 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 This morning developed swelling and pain in the upper left arm has bruising present as well did not hit anything called her surgeon conduit helper who stated that she had no IVs in that arm no blood pressure cuff on arm there is no abnormal positioning. [facility] Medical History History of medical termination of Sore throat GUIDO I (cervical intraepithelial neoplasia I) Anemia Anxiety Depression Surgical History Hx of lymph node excision History of Family History Maternal Aunt Lung cancer Maternal Grandfather Lung cancer Maternal Grandmother Mental health disorder Substance use disorder Mother Mental health disorder High cholesterol Father Substance use disorder Social History Household Members: Spouse Housing: House Alcohol intake: current Alcohol intake frequency: holidays/special occasions only Patient Tobacco Use Status: Never used Tobacco e-Cigarette/Vaping Use: Never Used Second Hand Smoke Exposure: No Substance Use Type: Marijuana service: No Current occupational status: employed Cognitive needs: No Hearing needs: No Vision needs: No Female Reproductive History Menstrual Age of Menarche: 10 Review of Systems Skin/Breast Details: Left arm swelling Physical Exam Vital Signs: Last Vital Signs Temp 98.6 F 03/17/23 12:53 Pulse 73 03/17/23 12:53 BP 108/70 03/17/23 12:53 Pulse Ox 99 03/17/23 12:53 BMI result Body Mass Index 39.0 Const General: cooperative, healthy appearing, no acute distress and alert Orientation/consciousness: patient oriented x3 Limitations: no limitations HEENT Head: Yes normal to inspection Ears: hearing grossly normal bilaterally General nose exam: Normal external nose present Resp Effort & Inspection: normal respiratory effort and able to speak in complete sentences Cardio Rate: regular rate Skin General skin exam: no rashes or lesions noted Neuro General: patient oriented x3 Extrem Other: Swelling of the left upper extremity. Overlying ecchymosis when the lateral aspect of the left elbow. No redness or erythema mild warmth General: Yes normal to inspection Assessment & Plan Assessment & Plan (1) Left upper extremity swelling: Code(s): M79.89 - Other specified soft tissue disorders Plan: VSS. Exam notable for the above findings consideration is surgical positioning verses simple hematoma due to unknown injury verses upper extremity DVT lower suspicion however given prolonged surgical procedure unreasonable though no history of coagulation disorder. Given physical bruise present extremely low suspicion will recommend watchful waiting current leak with icing compression patient will reach back out to her surgeon Sunday. If swelling or bruising gets worse patient will proceed to the emergency department. Coding Level of Care Code Est Pt Level 3 (08089) Diagnoses Left upper extremity swelling M79.89
== END 2023-03-17 13:16 | disposition home or self-care (01) ==
PROVIDERS: PCP Internal Medicine; Visit Provider Physician Assistant
DX: M79.89 Other specified soft tissue disorders (principal)
CPT/HCPCS: 99051; 99213

== ENCOUNTER 2023-03-23 14:57 | Outpatient (REF) | payer OTHER, SELFPAY | END 2023-03-23 14:58 | disposition home or self-care (01) | LOC: HO.MDS 14:57 | PROVIDERS: PCP Internal Medicine; Visit Provider Internal Medicine | DX: D50.8 Other iron deficiency anemias (principal) | CPT/HCPCS: 96365; J1756 ==

== ENCOUNTER 2023-03-28 13:05 | Outpatient (AMB) | payer OTHER, SELFPAY ==
--- OUTSIDE RECORDS SUMMARY | 2023-03-28 13:07 | XMS_ITS | Continuity of Care Document ---
Author Name Unknown Organization [facility] Address [address] [place] [id number]- Care Team Providers Care Application Services Manager Name Role Phone Sukhdev VIGIL, Asma Primary Care Physician Encounter [facility] Date(s): 02/03/20 - 02/03/[address] [id number]- [facility] Discharge Disposition: A-D/C Home Attending Physician: Chito George MD Admitting Physician: Chito George MD Referring Physician: Not on Staff, Referring MD Allergies, Adverse Reactions, Alerts Substance Reaction Severity Status sulfADIAZINE HIVES Active Immunizations Given and Recorded Vaccine Date Status Refusal Reason influenza virus vaccine, inactivated 04/14/16 Give n influenza virus vaccine, inactivated 01/06/15 Give n tetanus/diphtheria/pertussis, acel(Tdap) 12/30/14 Given Medications busPIRone 5 mg oral tablet 5 mg, 1, tablet, By Mouth, Daily, Refills 0, Maintenance, 02/03/20 17:49:00 EDT Start Date: 02/03/20 Status: Ordered FLUoxetine 20 mg oral capsule 20 mg, 1, capsule, By Mouth, Daily, # 30 capsule, Refills 0, Maintenance, 02/03/20 17:50:00 EDT Start Date: 02/03/20 Status: Ordered ondansetron 4 mg oral tablet 1 tablet = 4 mg, By Mouth, 3 times a day, PRN as needed for nausea/vomiting, for 5 days, # 10 tablet, 0 Refills, Acute 02/08/20 19:14:00 EST, 02/03/20 19:14:00 EDT, Tablet, [id number], 165, cm, 02/03/20 17:44:00 EDT, Height, 107.3, kg, ... Start Date: 02/03/20 Stop Date: 02/08/20 Status: Ordered Problem List Condition Effective Dates Status Health Status Inform ant Anxiety and depression(Confirmed) Active Cat-scratch disease(Confirmed) 1 Active Fracture of hand(Confirmed) Active Thalassemia trait(Confirmed) Active Iron deficiency anemia(Confirmed) Active Nephrolithiasis(Confirmed) Active 1S/P surgery aged 11 Vital Signs Most recent to oldest [Reference Range]: 1 2 Height 165 cm (02/03/20 5:44 PM) Weight 107.3 kg (02/03/20 5:44 PM) Oxygen Saturation [94-100 %] 100 % (02/03/20 7:25 PM) 100 % (02/03/20 5:44 PM) Pulse Rate [55-90 bpm] 70 bpm (02/03/20 7:25 PM) 80 bpm (02/03/20 5:44 PM) Blood Pressure [90-138/55-84 mm Hg] 128/ 79mm Hg (02/03/20 7:25 PM) 113/101mm Hg (02/03/20 5:44 PM) Respiratory Rate [16-30 br/min] 16 br/mi n (02/03/20 7:25 PM) 16 br/min (02/03/20 5:44 PM) Temperature [96.8-100.4 DegF] 98.5 DegF (02/03/20 5:44 PM) Mode of Delivery (Oxygen) Room air (02/03/20 7:25 PM) Room air (02/03/20 5:44 PM) Blood pressure sites Arm, right (02/03/20 5:44 PM) Temperature Route Oral (02/03/20 5:44 PM) Dry Weight 107.3 kg (02/03/20 5:44 PM) Weight Obtained Via Standing scale (02/03/20 5:44 PM) Dry Weight Obtained Via Standing scale (02/03/20 5:44 PM) Social History Social History Type Response Smoking Status Never smoker entered on: 12/11/14 Sex
--- NOTE | 2023-03-28 13:09 | A.OFFVIS_ITS ---
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 The pathology showed the following: Fragments of decidua with degenerative changes; secretory endometrium; squamous epithelium within normal limits; no atypia identified The following workup for AUB was done H&H= 8.9/30.8, the patient consulted with Hematology scheduled for iron infusion TSH, hCG, GC and chlamydia were negative. Endometrial biopsy pathology showed the following: Endometrium, biopsy: Fragments of mixed proliferative and decidualized endometrium with involutional changes of vessels (fibrinoid necrosis and hyalinization) suggestive of retained products of conception; negative for atypia, hyperplasia or malignancy Co testing was done was negative. Pelvic ultrasound was done and unremarkable [facility] Medical History History of medical termination of Sore throat GUIDO I (cervical intraepithelial neoplasia I) Anemia Anxiety Depression Surgical History Hx of lymph node excision History of Family History Maternal Aunt Lung cancer Maternal Grandfather Lung cancer Maternal Grandmother Mental health disorder Substance use disorder Mother Mental health disorder High cholesterol Father Substance use disorder Social History Household Members: Spouse Housing: House Alcohol intake: current Alcohol intake frequency: holidays/special occasions only Patient Tobacco Use Status: Never used Tobacco e-Cigarette/Vaping Use: Never Used Second Hand Smoke Exposure: No Substance Use Type: Marijuana service: No Current occupational status: employed Cognitive needs: No Hearing needs: No Vision needs: No Female Reproductive History Menstrual Age of Menarche: 10 Review of Systems Const All systems reviewed & are unremarkable except as noted in HPI and below Reports as per HPI and Reports no additional complaints GI Reports no additional complaints Reports no additional complaints Physical Exam Vital Signs: Last Vital Signs BP 110/76 03/28/23 13:13 BMI result Body Mass Index 38.6 Assessment & Plan Assessment & Plan (1) Abnormal uterine bleeding (AUB): Code(s): N93.9 - Abnormal uterine and vaginal bleeding, unspecified Plan: Discussed with the patient the results of the work up done and options of treatment including Lysteda, control pills, Mirena IUD, endometrial ablation and hysterectomy. All pros, cons, risks and benefits if each option was discussed with the patient and the patient decided to go ahead with Mirena IUD so a more detailed discussion about it was conducted including mechanism of action, risks (uterine perforation, infection, injury to bladder, bowel, displacement, and others) benefits (hypo menorrhea, amenorrhea, ...). GC/CT were taken recently and were negative and the patient was instructed to schedule Mi raffy IUD insertion on day 1-5 of next cycle . The patient verbalized understanding and agreed with the plan. Coding Level of Care Code Est Pt Level 3 (96277) Diagnoses Abnormal uterine bleeding (AUB) N93.9
[2023-03-28 13:13] VITALS: BP 110/76; BMI 38.6
== END 2023-03-28 13:32 | disposition home or self-care (01) ==
LOC: HO.HWS 13:05
PROVIDERS: PCP Internal Medicine; Visit Provider Obstetrics & Gynecology
DX: N93.9 Abnormal uterine and vaginal bleeding, unspecified (principal)
CPT/HCPCS: 99213

== ENCOUNTER → 2023-03-28 13:05 | Outpatient (BNVA) | payer OTHER, SELFPAY | PROVIDERS: PCP Internal Medicine; Visit Provider Obstetrics & Gynecology | DX: N93.9 Abnormal uterine and vaginal bleeding, unspecified (principal) | CPT/HCPCS: 99212 ==

== ENCOUNTER 2023-04-06 15:01 | Outpatient (REF) | payer OTHER, SELFPAY | END 2023-04-06 15:02 | disposition home or self-care (01) | LOC: HO.MDS 15:01 | PROVIDERS: Visit Provider Internal Medicine | DX: D50.9 Iron deficiency anemia, unspecified (principal) | CPT/HCPCS: 96365; J1756 ==

== ENCOUNTER 2023-04-13 14:53 | Outpatient (REF) | payer OTHER, SELFPAY | END 2023-04-13 14:54 | disposition home or self-care (01) | LOC: HO.MDS 14:53 | PROVIDERS: Visit Provider Internal Medicine | DX: D50.9 Iron deficiency anemia, unspecified (principal) | CPT/HCPCS: 96365; J1756 ==

== ENCOUNTER 2023-04-20 15:03 | Outpatient (REF) | payer OTHER, SELFPAY | END 2023-04-20 15:04 | disposition home or self-care (01) | LOC: HO.MDS 15:03 | PROVIDERS: Visit Provider Internal Medicine | DX: D50.9 Iron deficiency anemia, unspecified (principal) | CPT/HCPCS: 96365; J1756 ==

== ENCOUNTER 2023-04-27 13:46 | Outpatient (REF) | payer OTHER, SELFPAY | END 2023-04-27 13:47 | disposition home or self-care (01) | LOC: HO.MDS 13:46 | PROVIDERS: Visit Provider Internal Medicine | DX: D50.9 Iron deficiency anemia, unspecified (principal) | CPT/HCPCS: 96365; J1756 ==

== ENCOUNTER 2023-09-24 12:57 | Outpatient (AMB) | payer OTHER, SELFPAY ==
--- NOTE | 2023-09-24 12:59 | MHC.PC.OV ---
Vital Signs 09/24/23 13:02 Height 5 ft 4 in Weight 218 lb BMI 37.4 BP 116/74 Blood Pressure Location Lt brachial Position Sitting Pulse 78 Pulse Source Pulse Oximeter Pulse Oximetry (%) 99 Oxygen Delivery Method Room Air Intake Visit Reasons: pe Intake Note: Pt is here for annual PE. Pap smear 10/23/22 Allergies escitalopram Adverse Reaction (Severe, Verified 09/24/23 13:26) Palpitations bupropion [From Wellbutrin] Adverse Reaction (Verified 09/24/23 13:26) Chest discomfort, abdominal cramping sulfa Allergy (Unknown, Uncoded 09/24/23 13:26) hives control pills Adverse Reaction (Severe, Uncoded 09/24/23 13:26) vomiting Medication List - Last Reconciled 09/24/23 by ALVAREZ Shannon clonidine HCl 0.1 mg PO BID fluoxetine 10 mg PO DAILY ibuprofen 800 mg PO TID Tobacco use date assessed: 09/24/23 Dental Screening Dental Screen Date: 09/24/23 HPI HPI Comments History of Present Illness Details Patient is a 38-year-old female who I am meeting for the 1st time in for a physical exam Patient has establish care with [facility] lead enterprise architect Patient is up-to-date with Tdap last administered in 2019. Anemia-patient being followed by Hematology. Anxiety and depression-patient has established care with therapy and Psychiatry. Utilizing fluoxetine 10 mg p.o. daily as well as clonidine 0.1 mg p.o. b.i.d. p.r.n. [facility] Medical History History of medical termination of Sore throat GUIDO I (cervical intraepithelial neoplasia I) Anemia Anxiety Depression Surgical History Hx of lymph node excision History of Family History Maternal Aunt Lung cancer Maternal Grandfather Lung cancer Maternal Grandmother Mental health disorder Substance use disorder Mother Mental health disorder High cholesterol Father Substance use disorder Social History Household Members: Spouse Housing: House Alcohol intake: current Alcohol intake frequency: holidays/special occasions only Patient Tobacco Use Status: Never used Tobacco e-Cigarette/Vaping Use: Never Used Second Hand Smoke Exposure: No Substance Use Type: Marijuana service: No Current occupational status: employed Cognitive needs: No Hearing needs: No Vision needs: No Female Reproductive History Menstrual Age of Menarche: 10 Questionnaire PHQ-9 Over the last 2 weeks, how often have you been bothered by any of the following problems? 1. Little interest or pleasure in doing things: several days 2. Feeling down, depressed, or hopeless: nearly every day 3. Trouble falling or staying asleep, or sleeping too much: nearly every day 4. Feeling tired or having little energy: not at all 5. Poor appetite or overeating: nearly every day 6. Feeling bad about yourself - or that you are a failure or have let yourself or your family down: more than half the days 7. Trouble concentrating on things, such as reading the newspaper or watching television: nearly every day 8. Moving or speaking so slowly that other people could have noticed. Or the opposite - being so fidgety or restless that you have been moving around a lot more than usual: nearly every day 9. Thoughts that you would be better off or of hurting yourself in some way: not at all Total score: 18 Depression Screening Interpretation: Positive (Started on fluoxetine 2 days prior by psychiatrist) Depression Screening Follow-up: Existing condition and In treatment Depression Screening Done: Yes 14003 - PHQ-9 Billing: Yes Source: Developed by Drs. Nicho Cherry, Berenice Mercedes, Alton Orozco and colleagues, with an educational porter from [employer]. Thrive Questionnaire Date Thrive assessed: 11/12/20 I am a: Patient What is your living situation today?: I have a steady place to live Within the past 12 months, did the food you bought not last and you didn't have the money to get more?: Never true Within the past 12 months, did you worry whether your food would run out before you got money to buy more?: Never true Do you have trouble paying for medicines?: No Do you have trouble getting transportation to medical appointments?: No Do you have trouble paying your heating and electricity bill?: No Do you have trouble taking care of your child, family member or friend?: No Do you have trouble with day-to-day activities such as bathing, preparing meals, shopping, managing finances, etc.?: No Are you currently unemployed and looking for a job?: No Are you interested in more education?: No Please select the resources that you would like help with: None Currently or been in a relationship where the following occur: no concerns reported THRIVE Score: 0 AUDIT C Alcohol Use Questionnaire (AUDIT-C) 1. How often do you have a drink containing alcohol?: 2-4 times a month 2. How many drinks containing alcohol do you have on a typical day when you are drinking?: 1 or 2 3. How often do you have six or more drinks on one occasion?: Never Total Score: 2 Score Reviewed/Action Taken: Yes SANCHEZ-7 AMB Questionnaire SANCHEZ-7 Date SANCHEZ - 7 assessed: 09/24/23 Feeling nervous, anxious, or on edge: 3 = Nearly every day Not being able to stop or control worryin = Nearly every day Worrying too much about different things: 2 = More than half the days Trouble relaxin = More than half the days Being so restless that it is hard to sit still: 3 = Nearly every day Becoming easily annoyed or irritable: 3 = Nearly every day Feeling afraid as if something awful might happen: 2 = More than half the days Total SANCHEZ-7 score (0-4 normal; 5-9 mild; 10-14 moderate; 15-21 severe): 18 Source: Developed by Drs. Nicho Cherry, Berenice Mercedes, Alton Orozco and colleagues, with an educational porter from [employer]. SANCHEZ-7 Assessment Billing SANCHEZ-7 Assessment Tool: SANCHEZ-7 Assessment 64081 (Has establish care with therapist and recently started with psychiatrist.) Review of Systems Const All systems reviewed & are unremarkable except as noted in HPI and below Denies chills, Denies fatigue, Denies fever(s) and Denies headache(s) ENT Denies headache(s) Card Denies chest pain, Reports leg edema (bilateral LE) and Reports other (reports intermittent palpitations) Resp Denies cough GI Denies diarrhea, Denies nausea and Denies vomiting Neuro Denies headache(s) Endo Denies fatigue Physical exam (Primary Care) Vital Signs: Last Vital Signs Pulse 78 09/24/23 13:02 BP 116/74 09/24/23 13:02 Pulse Ox 99 09/24/23 13:02 Oxygen Delivery Method Room Air 09/24/23 13:02 Care Plan Goal for BP management: Blood pressure is controlled BMI result Body Mass Index 37.4 Tobacco/Smoking Status: Tobacco use Status Tobacco use date assessed 09/24/23 09/24/23 13:13 Patient Tobacco Use Status Never used Tobacco 09/24/23 13:00 e-Cigarette/Vaping Use Never Used 09/24/23 13:00 PHQ-9: PHQ-9 Score PHQ-9: Total score 18 09/24/23 13:13 Depression Screening Interpretation: Positive (Started on fluoxetine 2 days prior by psychiatrist) Depression Screening Follow-up: Existing condition and In treatment Thrive Assessment: Date of Thrive Assessment Date Thrive assessed 11/12/20 09/24/23 13:00 Currently or been in a relationship where the following occur: no concerns reported Const Other: Appearance: Alert.? Oriented X3.? No acute distress.? Head: Normocephalic. Eyes: Pupils equal, round and reactive to light.? ENT: Pharynx normal.?TM intact and pearly miramontes. Neck: Normal inspection.? Neck supple.?Full ROM. CVS: Normal heart rate and rhythm.? Pulses normal.? Respiratory: No respiratory distress.? Breath sounds normal.? Abdomen: Soft and nontender.? Skin: Skin warm and dry.? Normal skin color.? Normal skin turgor.? Extremities: Scant lower extremity edema.? No calf ttp. 5/5 strength to bilateral upper and lower extremities Back: No midline tenderness, no C-spine tenderness, full range of motion, no CVA tenderness bilaterally Neuro: Oriented X 3.? No motor deficit.? No sensory deficit. CN 2-12 intact Office Procedures EKG [id number], Complete Assessment and Plan Assessment & Plan (1) Encounter for physical examination: Comment: Patient has establish care with [place] lead enterprise architect Patient is up-to-date with Tdap last administered in 2019. Anemia-patient being followed by Hematology. Anxiety and depression-patient has established care with therapy and Psychiatry. Utilizing fluoxetine 10 mg p.o. daily as well as clonidine 0.1 mg p.o. b.i.d. p.r.n. Will draw fasting labs Code(s): Z00.00 - Encounter for general adult medical examination without abnormal findings (2) Anemia: Comment: Has establish care with Hematology. Will draw a CBC Code(s): D64.9 - Anemia, unspecified Qualifiers: Anemia type: unspecified type Qualified Code(s): D64.9 - Anemia, unspecified (3) Anxiety, generalized: Comment: Has therapy and Psychiatry. Utilizing fluoxetine 10 mg p.o. daily and clonidine 0.1 mg p.o. b.i.d. p.r.n.. Code(s): F41.1 - Generalized anxiety disorder (4) Palpitations: Comment: Will obtain EKG. Will obtain Holter monitor. Code(s): R00.2 - Palpitations Plan: draw labs Plan will follow up with labs. Orders: Orders Comprehensive Met. Panel Today Z91.89 - Other specified personal risk factors, not elsewhere classified Vitamin B6 Today Z13.21 - Encounter for screening for nutritional disorder UA CC w/rflx Micro + Cult Today Z13.89 - Encounter for screening for other disorder TSH reflex Free T4 Today Z13.29 - Encounter for screening for other suspected endocrine disorder AMB EKG-In Office Today Z13.6 - Encounter for screening for cardiovascular disorders ECG 3 day holter monitor Today R00.2 - Palpitations Complete Blood Count Auto Diff Today Z13.0 - Encounter for screening for diseases of the blood and blood-forming organs and certain disorders involving the immune mechanism Lipid Panel Today Z13.220 - Encounter for screening for lipoid disorders Vitamin D 25-OH (D2 and D3) Today Z13.21 - Encounter for screening for nutritional disorder Vitamin B12 Today Z13.21 - Encounter for screening for nutritional disorder Coding Level of Care Code Est Pt Prev Care 18-39y(14485) Diagnoses Encounter for physical examination Z00.00 Anemia, unspecified type D64.9 Anemia type: unspecified type Anxiety, generalized F41.1 Palpitations R00.2 CPT Codes EKG - CPT: 27494-[id number], Complete ([id number]) Additional Codes SANCHEZ-7 Assessment Billing - SANCHEZ-7 Assessment Tool: SANCHEZ-7 Assessment 18904 ([id number]) Time Spent (min) 28
[2023-09-24 13:02] VITALS: BP 116/74; PULSE 78; O2SAT 99; BMI 37.4
== END 2023-09-24 14:01 | disposition home or self-care (01) ==
PROVIDERS: PCP Internal Medicine; Visit Provider Nurse Practitioner Primary Care
DX: Z00.00 Encounter for general adult medical examination without abnormal findings (principal); D64.9 Anemia, unspecified; F41.1 Generalized anxiety disorder; R00.2 Palpitations
CPT/HCPCS: 93000; 99395

== ENCOUNTER 2023-09-24 14:02 | Outpatient (REF) | payer OTHER, SELFPAY ==
[2023-09-24 16:03] LABS: MANUAL DIFF FLAG NO
[2023-09-24 16:15] LABS: Basophils Percent Auto 0.5 % (0-2); Eosinophils Percent Auto 0.7 % (0-4); Hematocrit 31.9 % (37.0-47.0); Hemoglobin 9.5 g/dl (12.0-16.0); Imm Gran Abs Auto 0.01 X10*3/uL (0.00-0.03); Imm Gran Pct Auto 0.2 % (0.0-0.4); Lymphocytes Absolute Auto 0.8 X10*3/uL (1.2-4.9); Lymphocytes Percent Auto 14.9 % (20-40); Mean Corpuscular HGB Conc 29.8 g/dl (31.0-35.0); Mean Corpuscular Volume 73.8 fL (80.0-98.0); Mean Platelet Volume 11.4 fL (9.4-12.3); Monocytes Absolute Auto 0.3 X10*3/uL (0.1-1.2); Monocytes Percent Auto 5.4 % (2-11); Neutrophils Absolute Auto 4.4 x10*3/uL (2.0-8.3); Neutrophils Percent Auto 78.3 % (45-73); Platelet Count 346 X10*3/uL (160-400); Red Blood Count 4.32 X10*6/uL (4.20-5.50); Red Cell Distribution Width 16.6 % (11.0-16.0); White Blood Count 5.6 X10*3/uL (4.8-10.8)
[2023-09-24 16:42] LABS: Alanine Aminotransferase 14 U/L (0-31); Albumin Level 4.1 g/dL (3.5-5.0); Alkaline Phosphatase 64 U/L (39-117); Anion Gap 11 (12-20); Aspartate Amino Transferase 16 U/L (5-31); Bilirubin Total 0.4 mg/dL (0.0-1.0); Blood Urea Nitrogen 13 mg/dL (9-16); Calcium 9.1 mg/dL (8.4-10.2); Carbon Dioxide 24 mmol/L (22-29); Chloride 110 mmol/L (96-108); Cholesterol 132 mg/dL (<200); Estimated Glomerular Filt Rate > 60; Glucose Random 101 mg/dL (60-115); HDL Cholesterol 47 mg/dL (>40); LDL Cholesterol Calculated 70 mg/dL (<100); Potassium 3.6 mmol/L (3.3-5.1); Sodium 141 mmol/L (135-145); TSH reflex Free T4 0.88 uIU/mL (0.32-4.0); Total Protein 6.9 g/dL (6.5-8.0); Triglycerides 75 mg/dL (<150)
[2023-09-24 17:11] LABS: Vitamin B12 469 pg/mL (200-900)
[2023-09-29 13:18] LABS: Vitamin D 25-OH, D2 <4 ng/mL; Vitamin D 25-OH, D3 18 ng/mL; Vitamin D 25-OH, Total 18 ng/mL (30-100)
[2023-09-29 13:34] LABS: Vitamin B6 13.8 ng/mL (2.1-21.7)
== END 2023-09-24 14:03 | disposition home or self-care (01) ==
LOC: HO.HMGCLDS 14:02
PROVIDERS: PCP Internal Medicine; Visit Provider Nurse Practitioner Primary Care
DX: Z13.0 Encounter for screening for diseases of the blood and blood-forming organs and certain disorders involving the immune mechanism (principal); Z13.21 Encounter for screening for nutritional disorder; Z13.220 Encounter for screening for lipoid disorders; Z91.89 Other specified personal risk factors, not elsewhere classified; Z13.29 Encounter for screening for other suspected endocrine disorder
CPT/HCPCS: 36415; 80053; 80061; 82306; 82607; 84207; 84443; 85025

== ENCOUNTER 2023-11-07 09:45 | Outpatient (RCR) | payer OTHER, SELFPAY ==
[2023-10-03 10:54] VITALS: BP 130/78; PULSE 62; RESP 16; TEMP 36.5; O2SAT 97
[2023-10-03] MEDS: Iron Sucrose Complex 200 MG in 0.9 % Sodium Chloride 100 ML 440 MG IV (11:06)
[2023-10-03] MEDS: 0.9 % Sodium Chloride Flush 10 ML SYRINGE 5 ML IVFLUSH (11:27)
[2023-10-10 10:03] VITALS: BP 117/56; PULSE 70; RESP 18; TEMP 36.5; O2SAT 96
[2023-10-10 10:06] VITALS: BMI 36.6
[2023-10-10] MEDS: Iron Sucrose Complex 200 MG in 0.9 % Sodium Chloride 100 ML 440 MG IV (10:20)
[2023-10-10] MEDS: 0.9 % Sodium Chloride Flush 10 ML SYRINGE 5 ML IVFLUSH (10:37)
[2023-10-17 10:54] VITALS: BP 121/55; PULSE 58; RESP 16; TEMP 37.1; O2SAT 97
[2023-10-17] MEDS: Iron Sucrose Complex 200 MG in 0.9 % Sodium Chloride 100 ML 440 MG IV (11:35)
[2023-10-24 09:55] VITALS: BP 112/61; PULSE 71; RESP 18; TEMP 37.3; O2SAT 100
[2023-10-24] MEDS: Iron Sucrose Complex 200 MG in 0.9 % Sodium Chloride 100 ML 440 MG IV (10:15)
[2023-10-31 10:12] VITALS: BP 102/54; PULSE 56; RESP 16; TEMP 36.4; O2SAT 97
[2023-10-31] MEDS: Iron Sucrose Complex 200 MG in 0.9 % Sodium Chloride 100 ML 440 MG IV (10:15)
[2023-10-31] MEDS: 0.9 % Sodium Chloride Flush 10 ML SYRINGE 5 ML IVFLUSH (10:37)
[2023-11-07 09:52] VITALS: BP 147/74; PULSE 74; RESP 14; TEMP 36.1; O2SAT 99
[2023-11-07] MEDS: Iron Sucrose Complex 200 MG in 0.9 % Sodium Chloride 100 ML 440 MG IV (09:59)
[2023-11-07] MEDS: 0.9 % Sodium Chloride Flush 10 ML SYRINGE 5 ML IVFLUSH (10:17)
== END 2023-11-07 11:12 | disposition home or self-care (01) ==
LOC: HO.INF 09:45
PROVIDERS: Visit Provider Internal Medicine
DX: E61.1 Iron deficiency (principal)
CPT/HCPCS: 96365; 96374; J1756

== ENCOUNTER 2024-01-08 10:39 | Outpatient (AMB) | payer OTHER, SELFPAY ==
--- NOTE | 2024-01-08 10:57 | MHC.OFFVIS ---
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/DO NOT RS Legal Archivist Required: No Information Interpreted: non-clinical & clinical Maintenance Worker House Trailer: Maintenance Worker House Trailer Present (Heydi PAUL) Accompanied by: Self / Same As Patient Allergies escitalopram Adverse Reaction (Severe, Verified 01/08/24 11:05) Palpitations bupropion [From Wellbutrin] Adverse Reaction (Verified 01/08/24 11:05) Chest discomfort, abdominal cramping sulfa Allergy (Unknown, Uncoded 01/08/24 11:05) hives control pills Adverse Reaction (Severe, Uncoded 01/08/24 11:05) vomiting Is last menstrual period known: Yes Last menstrual period: 12/30/23 HPI Comments Details: Presenting for annual exam. No complaints. Last Pap/HPV was negative in 10/29 [facility] Medical History History of medical termination of Sore throat GUIDO I (cervical intraepithelial neoplasia I) Anemia Anxiety Depression Surgical History Hx of lymph node excision History of Family History Maternal Aunt Lung cancer Maternal Grandfather Lung cancer Maternal Grandmother Mental health disorder Substance use disorder Mother Mental health disorder High cholesterol Father Substance use disorder Social History Household Members: Spouse Housing: House Alcohol intake: current Alcohol intake frequency: holidays/special occasions only Patient Tobacco Use Status: Never used Tobacco e-Cigarette/Vaping Use: Never Used Second Hand Smoke Exposure: No Substance Use Type: Marijuana service: No Current occupational status: employed Cognitive needs: No Hearing needs: No Vision needs: No Female Reproductive History Menstrual Age of Menarche: 10 Date of last menstrual period: 12/30/23 Review of Systems Const All systems reviewed & are unremarkable except as noted in HPI and below Card Reports as per HPI Resp Reports as per HPI GI Reports as per HPI and Reports no additional complaints Reports as per HPI Physical Exam Vital Signs: Last Vital Signs BP 120/72 01/08/24 11:00 BMI result Body Mass Index 38.8 Const General: cooperative, healthy appearing and comfortable Chest Chest palpation & inspection: normal inspection of the chest and normal palpation of entire chest wall Breast/axilla inspection: normal inspection of the breasts and normal inspection of the axillae Breast/axilla palpation: normal palpation of the breasts, normal palpation of the axillae and no axillary lymphadenopathy Resp Effort & Inspection: normal respiratory effort Auscultation: clear to auscultation bilaterally Percussion: percussion normal Cardio Palpation: normal PMI Rate: regular rate Rhythm: regular rhythm Heart sounds: no murmurs and no rubs Peripheral pulses: Peripheral pulses 2+ throughout GI Inspection: Yes normal to inspection Palpation (GI): Soft to palpation, nontender, no guarding, not rigid and No hepatosplenomegaly present Percussion: Yes normal to percussion Auscultation: normal bowel sounds Rectal Exam - Female: deferred General: Yes bladder normal to palpation External Female Exam: No lesion Speculum Exam - Vagina: normal appearance of the vagina, normal palpation, normal vaginal discharge and not erythematous Speculum Exam - Cervix: normal appearance of the cervix and normal palpation Bimanual exam- vagina & uterus: normal bimanual exam, normal palpation, uterine size normal, bladder normal to palpation, consistency normal and normal palpation Bimanual Exam- Adnexa, other: normal adnexae, no masses and no tenderness Assessment & Plan Assessment & Plan (1) Well woman exam: Comment: GUIDO 1 in 01/26 10/29 co testing negative Code(s): Z01.419 - Encounter for gynecological examination (general) (routine) without abnormal findings Category: Medical Plan: Cotesting done. Mammogram ordered for 06/03. Counseled the patient about the recommended dietary allowance of 1000 mg of Calcium & 600 IU of vitamin D. The patient was instructed to perform monthly self-breast exams and to schedule an annual exam in a year; All questions answered and the patient verbalized understanding. Instructed the patient to schedule annual exam in a year Orders: Orders MM tomosynthesis screening BI Today Z12.31 - Encounter for screening mammogram for malignant neoplasm of breast Coding Level of Care Code Est Pt Prev Care 18-39y(89424) Diagnoses Well woman exam Z01.419
[2024-01-08 11:00] VITALS: BP 120/72; BMI 38.8
== END 2024-01-08 12:05 | disposition home or self-care (01) ==
PROVIDERS: PCP Internal Medicine; Visit Provider Obstetrics & Gynecology
DX: Z01.419 Encounter for gynecological examination (general) (routine) without abnormal findings (principal)
CPT/HCPCS: 99395

== ENCOUNTER 2024-01-08 10:39 | Outpatient (REF) | payer OTHER, SELFPAY ==
[2024-01-11 00:43] LABS: HPV mRNA E6/E7 Not Detected (Not Detected)
== END 2024-01-08 10:40 | disposition home or self-care (01) ==
LOC: HO.LNP 10:39
PROVIDERS: PCP Internal Medicine; Visit Provider Obstetrics & Gynecology
DX: Z01.419 Encounter for gynecological examination (general) (routine) without abnormal findings (principal); Z87.410 Personal history of cervical dysplasia
CPT/HCPCS: 87624; 88175; 99395

== ENCOUNTER 2024-04-15 11:24 | Outpatient (AMB) | payer OTHER, SELFPAY ==
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
[2024-04-15 11:34] VITALS: BP 122/74; PULSE 70; O2SAT 100; BMI 35.1
== END 2024-04-15 13:46 | disposition home or self-care (01) ==
PROVIDERS: PCP Internal Medicine; Visit Provider Internal Medicine
DX: D64.9 Anemia, unspecified (principal); F41.1 Generalized anxiety disorder; E61.1 Iron deficiency; R21 Rash and other nonspecific skin eruption; L98.7 Excessive and redundant skin and subcutaneous tissue

== ENCOUNTER 2024-04-15 11:24 | Outpatient (REF) | payer OTHER, SELFPAY ==
[2024-04-15 13:13] LABS: MANUAL DIFF FLAG NO
[2024-04-15 13:30] LABS: Basophils Percent Auto 0.4 % (0-2); Eosinophils Absolute Auto 0.2 X10*3/uL (0.0-0.4); Eosinophils Percent Auto 4.2 % (0-4); Hematocrit 34.9 % (37.0-47.0); Hemoglobin 10.7 g/dl (12.0-16.0); Imm Gran Abs Auto 0.02 X10*3/uL (0.00-0.03); Imm Gran Pct Auto 0.4 % (0.0-0.4); Lymphocytes Absolute Auto 0.7 X10*3/uL (1.2-4.9); Mean Corpuscular HGB Conc 30.7 g/dl (31.0-35.0); Mean Corpuscular Hemoglobin 22.1 pg (27.0-33.0); Monocytes Absolute Auto 0.4 X10*3/uL (0.1-1.2); Monocytes Percent Auto 7.6 % (2-11); Neutrophils Absolute Auto 4.3 x10*3/uL (2.0-8.3); Neutrophils Percent Auto 75.4 % (45-73); Platelet Count 231 X10*3/uL (160-400); Red Blood Count 4.85 X10*6/uL (4.20-5.50); Red Cell Distribution Width 18.8 % (11.0-16.0); White Blood Count 5.7 X10*3/uL (4.8-10.8)
[2024-04-15 14:11] LABS: Alanine Aminotransferase 12 U/L (0-31); Albumin Level 4.3 g/dL (3.5-5.0); Alkaline Phosphatase 76 U/L (39-117); Anion Gap 8 (12-20); Aspartate Amino Transferase 15 U/L (5-31); Bilirubin Total 0.4 mg/dL (0.0-1.0); Blood Urea Nitrogen 11 mg/dL (9-16); Calcium 9.5 mg/dL (8.4-10.2); Carbon Dioxide 24 mmol/L (22-29); Chloride 111 mmol/L (96-108); Estimated Glomerular Filt Rate > 60; Glucose Random 107 mg/dL (60-115); Potassium 4.1 mmol/L (3.3-5.1); Sodium 139 mmol/L (135-145); Total Protein 7.5 g/dL (6.5-8.0)
[2024-04-15 14:15] LABS: Ferritin 5 ng/mL (10-122)
[2024-04-15 14:25] LABS: Vitamin B12 523 pg/mL (200-900)
[2024-04-16 21:43] LABS: LDL Cholesterol Direct 78 mg/dL (<100)
[2024-04-20 14:23] LABS: Vitamin D 25-OH, D2 <4 ng/mL; Vitamin D 25-OH, D3 19 ng/mL; Vitamin D 25-OH, Total 19 ng/mL (30-100)
== END 2024-04-15 11:25 | disposition home or self-care (01) ==
LOC: HO.HMGCLDS 11:24
PROVIDERS: PCP Internal Medicine; Visit Provider Internal Medicine
DX: F41.1 Generalized anxiety disorder (principal); D64.9 Anemia, unspecified; E61.1 Iron deficiency; L20.9 Atopic dermatitis, unspecified; L98.7 Excessive and redundant skin and subcutaneous tissue; E55.9 Vitamin D deficiency, unspecified
CPT/HCPCS: 36415; 80053; 82306; 82607; 82728; 83721; 84443; 85025; 96127

== ENCOUNTER 2024-07-01 14:31 | Outpatient (AMB) | payer OTHER, SELFPAY ==
[2024-07-01 14:41] VITALS: BP 122/68; BMI 35.1
--- NOTE | 2024-07-01 14:41 | A.OFFVIS_ITS ---
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 Ship: [employer] Present ([place]) Accompanied by: Self / Same As Patient Allergies escitalopram Adverse Reaction (Severe, Verified 07/01/24 14:41) Palpitations bupropion [From Wellbutrin] Adverse Reaction (Verified 07/01/24 14:41) Chest discomfort, abdominal cramping sulfa Allergy (Unknown, Uncoded 01/22/24 10:30) hives control pills Adverse Reaction (Severe, Uncoded 01/22/24 10:30) vomiting HPI Comments Details: Presenting for Mirena IUD insertion [facility] Medical History History of medical termination of Sore throat GUIDO I (cervical intraepithelial neoplasia I) Anemia Anxiety Depression Surgical History Hx of lymph node excision History of Family History Maternal Aunt Lung cancer Maternal Grandfather Lung cancer Maternal Grandmother Mental health disorder Substance use disorder Mother Mental health disorder High cholesterol Father Substance use disorder Social History Household Members: Spouse Housing: House Alcohol intake: current Alcohol intake frequency: holidays/special occasions only Patient Tobacco Use Status: Never used Tobacco e-Cigarette/Vaping Use: Never Used Second Hand Smoke Exposure: No Substance Use Type: Marijuana service: No Current occupational status: employed Cognitive needs: No Hearing needs: No Vision needs: No Female Reproductive History Menstrual Age of Menarche: 10 Physical Exam Vital Signs: Last Vital Signs BP 122/68 07/01/24 14:41 BMI result Body Mass Index 35.1 Office Procedures IUD Insert/Removal Details Details: The patient is presenting for Mirena IUD insertion Urine test was done in the office and was negative; All the contraindications were excluded. The following possible complications were discussed with the patient: Intrauterine , Ectopic , Sepsis, Pelvic Infection, Irregular Bleeding and Amenorrhea, Perforation, Expulsion, Ovarian Cysts, Breast Cancer, The following adverse effects were discussed with the patient: alteration of menstrual bleeding pattern, including: unscheduled uterine bleeding decreased uterine bleeding increased scheduled uterine bleeding female genital tract bleeding ,amenorrhea , genital discharge , vulvovaginitis , breast pain , benign ovarian cyst and associated complications , dysmenorrhea , Gastrointestinal disorders abdominal/pelvic pain, headache/migraine , back pain , acne , depression Alternative options were discussed with the patient including but not limited: control pills, patch, NuvaRing, Depo-medroxyprogesterone acetate, Nexplanon, copper IUD, sterilization, vasectomy, others The procedure was explained in detail to patient , at the end patient signed the informed consent obtained. A no touch technique was used throughout the procedure. A speculum was placed into vagina and cervix was cleaned with betadine). A tenaculum was placed. A plastic sound was advanced through the external and internal os until it reached the fundus of the uterus, the depth was 8 cm. The sound was then withdrawn. The IUD was loaded in a sterile manner and advanced into position. The string was visualized and cut to 3 cm. Tenaculum site hemostatic. All instruments removed from vagina. Patient tolerated the procedure well. NO complications were noted. Patient was instructed to call for fever over 100.4, significant pain unrelieved by Motrin, IUD expulsion, heavy bleeding, or abnormal discharge. In addition, the following clinical considerations were discussed with the patient to call for removal: A stroke or heart attack ,Very severe or migraine headaches ,Unexplained fever ,Yellowing of the skin or whites of the eyes, as these may be signs of serious liver problems , or suspected , Pelvic pain or pain during sex ,HIV positive seroconversion in herself or her partner , Possible exposure to sexually transmitted infections Unusual vaginal discharge or genital sores , severe vaginal bleeding or bleeding that lasts a long time, or if she misses a menstrual period, Inability to feel Mirena's threads Counseled the patient that the IUD does not protect against STI's, recommended use of condoms for the first 7 days post insertion and explained to the patient that condoms are recommended for patients at risk for sexually transmitted infections. Informed the patient that Mirena IUD is FDA approved for 8 years for contraception for 5 years for the treatment of heavy menses Instructed the patient to schedule a Follow up appointment in 4 to 6 weeks following insertion. This note was generated with a voice recognition program. Some errors may have been overlooked during the review of this note. Sometimes these errors may affect the content or meaning of a given sentence. 47988-ERV Insertion Procedure code (CPT) selection complete Office Meds Mirena 21 mcg/24 hr (up to 8 years) 52 mg intrauterine device Performing Provider: Mark Monroe MD Performing Location: [facility] Documented (not given) by: Mark Monroe MD on 07/01/24 14:52 Dose Route Admin Location Dispensed Lot Number Expiration Date [facility] Reservations Sales Agent 1 device intrauterine ea Assessment & Plan Assessment & Plan (1) Encounter for IUD insertion: Code(s): Z30.430 - Encounter for insertion of intrauterine contraceptive device Category: Medical Plan: UPT done in the office and was negative Mirena IUD inserted, see procedure note Orders: Orders AMB IUD Insertion/Removal - Practice Supplied Today Z30.430 - Encounter for insertion of intrauterine contraceptive device Medications: New Mirena (levonorgestrel) 1 device intrauterine ONCE 1 ea 0RF AUB NS Z30.430 - Encounter for insertion of intrauterine contraceptive device Coding Level of Care Code Procedure Only Diagnoses Encounter for IUD insertion Z30.430 CPT Codes Details - CPT: 67605-UZV Insertion ([id number])
== END 2024-07-01 14:55 | disposition home or self-care (01) ==
LOC: HO.HWS 14:31
PROVIDERS: PCP Internal Medicine; Visit Provider Obstetrics & Gynecology
DX: Z30.430 Encounter for insertion of intrauterine contraceptive device (principal)
CPT/HCPCS: 58300

== ENCOUNTER → 2024-07-01 14:31 | Outpatient (BNVA) | payer OTHER, SELFPAY | PROVIDERS: PCP Internal Medicine; Visit Provider Obstetrics & Gynecology | DX: Z30.430 Encounter for insertion of intrauterine contraceptive device (principal) | CPT/HCPCS: 58300 ==

== ENCOUNTER 2024-08-18 11:32 | Outpatient (AMB) | payer OTHER, SELFPAY ==
--- NOTE | 2024-08-18 11:39 | MHC.OFFVIS ---
Vital Signs 08/18/24 11:41 Height 5 ft 5 in Weight 211 lb BMI 35.1 Intake Visit Reasons: IUD Check Watch Mechanic Required: No Information Interpreted: non-clinical & clinical Warehouse Administrative Assistant: Warehouse Administrative Assistant Present (Heydi PAUL) Accompanied by: Self / Same As Patient Allergies escitalopram Adverse Reaction (Severe, Verified 08/18/24 11:41) Palpitations bupropion [From Wellbutrin] Adverse Reaction (Verified 08/18/24 11:41) Chest discomfort, abdominal cramping sulfa Allergy (Unknown, Uncoded 08/18/24 11:41) hives control pills Adverse Reaction (Severe, Uncoded 08/18/24 11:41) vomiting Is last menstrual period known: No (mirena) HPI Comments Details: The patient is presenting for IUD check after 1 st period following IUD insertion. 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 [facility] Medical History History of medical termination of Sore throat GUIDO I (cervical intraepithelial neoplasia I) Anemia Anxiety Depression Surgical History Hx of lymph node excision History of Family History Maternal Aunt Lung cancer Maternal Grandfather Lung cancer Maternal Grandmother Mental health disorder Substance use disorder Mother Mental health disorder High cholesterol Father Substance use disorder Social History Household Members: Spouse Housing: House Alcohol intake: current Alcohol intake frequency: holidays/special occasions only Patient Tobacco Use Status: Never used Tobacco e-Cigarette/Vaping Use: Never Used Second Hand Smoke Exposure: No Substance Use Type: Marijuana service: No Current occupational status: employed Cognitive needs: No Hearing needs: No Vision needs: No Female Reproductive History Menstrual Age of Menarche: 10 Review of Systems Const All systems reviewed & are unremarkable except as noted in HPI and below Physical Exam Vital Signs: BMI result Body Mass Index 35.1 General: Yes no CVA tenderness External Female Exam: normal external appearance and normal appearance of the urethra Speculum Exam - Vagina: normal appearance of the vagina, normal palpation, no lesions and no masses Speculum Exam - Cervix: normal appearance of the cervix, normal palpation, no lesions, no masses, nontender and Other cervical findings present (IUD string in place) Bimanual exam- vagina & uterus: normal bimanual exam, normal palpation, uterine size normal, normal palpation, uterine shape normal, No Cervical tenderness present and non-tender Bimanual Exam- Adnexa, other: normal adnexae Back/Spine/Pelvis Back: no CVA tenderness Assessment & Plan Assessment & Plan (1) IUD check up: Code(s): Z30.431 - Encounter for routine checking of intrauterine contraceptive device Category: Medical Plan: UPT done in the office was negative. Discussed with the patient the finding on physical exam, IUD string in place, the patient was reassured. Instructions given to patient to call in case of temperature above 100.4, severe cramping/pelvic pain, abnormal discharge or abnormal uterine bleeding or if she misses her menstrual cycle. Otherwise follow-up at her annual exam appointment. All questions answered, the patient verbalized understanding. Coding Level of Care Code Est Pt Level 3 (52264) Diagnoses IUD check up Z30.431
[2024-08-18 11:41] VITALS: BMI 35.1
--- OUTSIDE RECORDS SUMMARY | 2024-08-18 12:22 | XMS_ITS | Data Portability ---
Author Organization [place] - [facility], , [facility] Address [address] [place] [address] Assessment No assessment recorded. Plan of Treatment Reminders Order Date Submit Date Provider Last Modified By Organization Details Last Modified Time Details Appointments None record ed. Lab None record ed. Referral None record ed. Procedures None record ed. Surgeries None record ed. Imaging None record ed. Medication Orders None record ed. Patient TargetsNo targets recorded. Patient InstructionsNo instructions recorded. Reason for Referral None Reported. Results Created Date Observation Date Name Description Value Unit Range Abnormal Flag Note LastModifiedBy Organization Detail LastModifiedTime 12/02/19 06 12/01/2005 CBC WBC 6.7 K/?L 4.6-10 .2 Not Available [address], [address], 06/08/2008 03:59:21 12/02/19 06 12/01/2005 CBC lymph # 1.8 K/?L 0.6-3. 4 Not Available [address], [address], 06/08/2008 03:59:21 12/02/19 06 12/01/2005 CBC mid # 0.4 K/?L 0.0-1. 8 Not Available [address], [address], 06/08/2008 03:59:21 12/02/19 06 12/01/2005 CBC gran # 4.5 K/?L 2.0-6. 9 Not Available [address], [address], 06/08/2008 03:59:21 12/02/19 06 12/01/2005 CBC lymph % 26.2 % 10.0-5 0.0 Not Available [address], [address], 06/08/2008 03:59:21 12/02/19 06 12/01/2005 CBC mid % 5.9 % 0.1-24 .0 Not Available [address], [address], 06/08/2008 03:59:21 12/02/19 06 12/01/2005 CBC gran % 67.9 % 37.0-8 0.0 Not Available [address], [address], 06/08/2008 03:59:21 12/02/1912/01/2005 CBC RBC 5.32 M/?L 4.04-5 .48 Not Available [address], [address], 06/08/2008 03:59:21 12/02/19 06 12/01/2005 CBC HGB 12.8 g/dL 12.2-1 6.2 Not Available [address], [address], 06/08/2008 03:59:21 12/02/1912/01/2005 CBC HCT 37.7 % 37.7-4 7.9 Not Available [address], [address], 06/08/2008 03:59:21 12/02/19 06 12/01/2005 CBC MCV 70.8 ?L 80.0-9 7.0 low Not Available [address], [address], 06/08/2008 03:59:21 12/02/1912/01/2005 CBC MCH 24.1 pg 27.0-3 1.2 low Not Available [address], [address], 06/08/2008 03:59:21 12/02/19 06 12/01/2005 CBC MCHC 34.0 g/dL 31.8-3 5.4 Not Available [address], [address], 06/08/2008 03:59:21 12/02/19 06 12/01/2005 CBC plt 303.0 K/?L 142.0- 424.0 Not Available [address], [address], 06/08/2008 03:59:21 12/02/19 06 12/01/2005 CBC RDW 16.6 % 11.6-1 4.8 high Not Available [address], [address], 06/08/2008 03:59:21 12/02/19 06 12/01/2005 CBC _MPV 0.0 Not Available [address], [address], 06/08/2008 03:59:21 12/02/19 06 12/01/2005 iron defic iency profi le iron 60 ug/dL 35-150 Not Available [address], [address], 06/08/2008 03:59:21 12/02/19 06 12/01/2005 iron defic iency profi le T.I.B.C. 381 ug/dL 250-45 0 Not Available [address], [address], 06/08/2008 03:59:21 12/02/19 06 12/01/2005 iron defic iency profi le % saturation 15.7 % Not Available [address], [address], 06/08/2008 03:59:21 07/22/19 10 07/21/2009 CBC WBC 12.3 K/uL 3.4-11 .2 high Not Available [facility] [address] [place], [address], 07/21/2009 18:02:23 07/22/19 10 07/21/2009 CBC RBC 4.70 M/uL 3.80-4 .80 Not Available [facility] [address] [place] [address], [address], 07/21/2009 18:02:23 07/22/19 10 07/21/2009 CBC hemoglobin 10.4 g/dL 12.0-1 5.0 low Not Available [facility]) [address] [place] [address], [address], 07/21/2009 18:02:23 07/22/19 10 07/21/2009 CBC hematocrit 34.1 % 36.0-4 6.0 low Not Available [facility]) [address] [place] [address], [id number], 07/21/2009 18:02:23 07/22/19 10 07/21/2009 CBC MCV 72.6 fL 79.0-9 8.0 low Not Available [facility] [address] [place] [address], [id number], 07/21/2009 18:02:23 07/22/19 10 07/21/2009 CBC MCH 22.1 pg 27.0-3 4.8 low Not Available [facility]) [address] [place] [address], [id number], 07/21/2009 18:02:23 07/22/19 10 07/21/2009 CBC MCHC 30.5 g/dL 31.5-3 6.0 low Not Available [facility] [address] [place] [address], [id number], 07/21/2009 18:02:23 07/22/19 10 07/21/2009 CBC RDW 16.6 % 10.8-1 4.6 high Not Available [facility] [address] [place] [address], [address], 07/21/2009 18:02:23 07/22/19 10 07/21/2009 CBC MPV 9.6 fL 7.2-10 .5 Not Available [facility] [address] [place], [address], 07/21/2009 18:02:23 07/22/19 10 07/21/2009 CBC platelet count 249 K/uL 130-40 0 Not Available [facility] [address] [place], [address], 07/21/2009 18:02:23 08/05/19 10 08/04/2009 cultu re, group B strep cultr.grp. B strep Not Available [facility] [address] [place] [address], [id number], 08/06/2009 12:58:06 08/05/19 10 08/04/2009 cultu re, group B strep organism BETA-H EMOLYT IC STREP. GROUP B Not Available [facility] [address] [place], [address], 08/06/2009 12:58:06 08/26/19 10 08/25/2009 type and scree n ABO group O Not Available [facility] [address] [place] [address], [address], 08/25/2009 08:21:15 08/26/19 10 08/25/2009 type and scree n Rh type POS Not Available [facility] [address] [place] [address], [id number], 08/25/2009 08:21:15 08/26/19 10 08/25/2009 type and scree n antibodyscre en-gel NEG @08/07 12/17 07:49 by [facility]: bbid #: [id number] Not Available [facility] [address] [place] [address], [address], 08/25/2009 08:21:15 08/24/19 11 08/23/2010 chlam ydia/ GC ampli fied DNA PCR source: CERVIX Not Available [facility] [address] [place] [address], [id number], 08/25/2010 16:00:00 08/24/19 11 08/23/2010 chlam ydia/ GC ampli fied DNA PCR source: CERVIX Not Available [facility] [address] [place] [address], [address], 08/25/2010 16:00:00 08/24/19 11 08/25/2010 chlam ydia/ GC ampli fied DNA PCR chlamydia tracho A NEGATI VE negati ve Not Available [facility] [address] [place] [address], [id number], 08/25/2010 16:00:00 08/24/19 11 08/25/2010 chlam ydia/ GC ampli fied DNA PCR neisseria gonorrhoeae A NEGATI VE negati ve test perfo rmed by: [facility] [place] [address] [place] [address] [facility] tor: amelia burnham, pH.D. Not Available [facility] [address] [place] [address], [id number], 08/25/2010 16:00:00 Result Notes None recorded. Problems Name Problem SNOMED Code Status Onset Date Resolution Date Notes Provider Name and Address Organization Details Recorded Time Headache 04541812 Active 2004 Not Available [facility] 3 03:12:11 [employer] shawanda 06343786 Active 2004 Not Available [facility] 3 03:12:11 [employer] 840093865 Active 2004 Not Available [facility] 3 03:12:11 Atopic dermatitis 96815998 Active 2003 Not Available [facility] 3 03:12:11 Common cold 47934866 Completed 200302/26/2013 Not Available [facility] 3 02:00:28 Acute laryngitis 1562916 Completed 200302/26/2013 Not Available [facility] 3 02:04:16 Chest pain 35153555 Completed 200602/26/2013 Not Available [facility] 3 02:01:46 Abnormal cervical Papanicola ou smear 092008347 Active 2005 Not Available [facility] 3 03:12:11 Anemia 771791633 Active 2004 Not Available [facility] 3 03:12:11 Spasm 44279010 Completed 200602/26/2013 Not Available [facility] 3 02:03:59 Pain in thoracic spine 562027368 Completed 200702/26/2013 Not Available [facility] 3 02:03:17 Low back pain 319785355 Active 2003 Not Available [facility] 3 03:12:11 Paronychia of toe 308730597 Active 2003 Not Available [facility] 3 03:12:11 Malaise and fatigue 144961493 Completed 200302/26/2013 Not Available [facility] 3 02:00:18 Vaginitis and vulvovagin itis Completed 200502/26/2013 Not Available [facility] 3 02:01:48 Problem Notes None recorded. Medical Equipment None Reported. Medications Name Sig Start Date Stop Date Status Note LastModified by Organization Details LastModified Time Celexa 20 mg tablet 04/22/19 08 active Take 1.00 tabs every day before noon Not Available Not Available Not Available Vitals None Recorded Social History None recorded. Functional Status None recorded. Mental Status None recorded. Family History Nothing Reported. Medical History No medical history recorded. Gynecological HistoryNo gynecological history recorded. Obstetrics History GPAL:G 0 P 0 0 0 0 Past Encounters Encounter ID Performer Location Encounter Start Date Encounter Closed Date Diagnosis/Indication Diagnosis SNOMED-CT Code Diagnosis ICD10 Code Diagnosis Note [id number] Rachel Vivar MD , [facility], OFFICE [address] [place] [address] 09/03/2003 14:37:10 09/08/2003 09:55:25 [id number] Marcos Pedro MD , [facility], OFFICE [address] [place] [address] 11/30/2003 14:02:14 11/30/2003 17:39:02 [id number] Elmo Kramer i, PT Physical Therapy, [facility] [address] [place] [address] 12/08/2003 13:09:37 12/08/2003 15:11:14 [id number] Elmo Kramer i, PT Physical Therapy, [facility] [address] [place] [address] 12/18/2003 11:34:45 12/21/2003 08:57:23 [id number] Lin NEAL , [facility], OFFICE [address] [place] [address] 01/21/2004 16:11:43 01/22/2004 09:14:[id number] [facility] - [address] [place] [address] 03/31/2004 08:42:52 03/31/2004 08:43:11 [id number] Marcos Pedro MD , [facility], OFFICE [address] [place] [address] 03/31/2004 08:11:40 04/05/2004 09:34:12 [id number] [facility] - [address] [address] 05/02/2004 14:04:32 05/02/2004 14:04:[id number] [facility] - [address] [place] [address] 06/06/2004 07:04:43 06/06/2004 08:27:[id number] [facility] - [address] [place] [address] 06/30/2004 09:49:01 06/30/2004 15:26:37 [id number] Marcos Pedro MD , [facility] [place], OFFICE [address] [place] [address] 06/30/2004 14:34:43 07/01/2004 10:15:31 [id number] Christopher Kimball OD Eye Care, [facility] [address] [place] [address] 07/07/2004 08:21:36 07/08/2004 08:29:[id number] [facility] - [facility] [address] [place] [address] 08/15/2004 08:40:05 08/15/2004 08:40:10 [id number] MD RAINE Cabrera, [facility], OFFICE [address] [place] [address] 08/17/2005 09:19:26 08/18/2005 08:03:[id number] [facility] - [address] [place] [address] 08/17/2005 10:07:21 08/17/2005 10:07:32 [id number] MD RAINE Cabrera, [facility], OFFICE [address] [place] [address] 08/31/2005 09:21:16 09/01/2005 07:41:[id number] [facility] - [address] [place] [address] 08/31/2005 09:49:18 08/31/2005 09:49:27 [id number] MD RAINE Cabrera, [facility], OFFICE [address] [place] [address] 09/13/2005 11:32:45 09/14/2005 08:21:[id number] [facility] - [address] [place] [address] 12/01/2005 08:36:25 12/01/2005 08:36:34 [id number] Gold NI, [facility] [place], OFFICE [address] [place] [address] 02/01/2006 15:03:35 02/02/2006 08:11:42 [id number] Lin NI, [facility], OFFICE [address] [place] [address] 06/28/2006 13:58:36 07/02/2006 07:47:31 [id number] Lin NI, [facility], OFFICE [address] [place] [address] 08/07/2006 13:20:25 08/07/2006 14:25:45 [id number] MD RAINE Cabrera, [facility], OFFICE [address] [place] [address] 04/22/2007 16:54:51 04/29/2008 02:02:29 Health Concerns Section Related Observation LastModified by Organization Detai ls LastModified Time None Recorded Concern Status LastModified by Organization Details LastModified Time None Recorded Advance Directives Directive None Recorded Payers Encounter Date Sequence Insurance Name Policy Number Policy Carrera Covered Member ID Carrera Member ID Guarantor Name 12/01/2005 1 [facility] Lierin Teri [id number] Lierin Teri 02/01/2006 1 [facility]) Lierin Teri [id number] Lierin Teri 06/28/2006 1 [facility]) Lierin Teri [id number] Lierin Teri 08/07/2006 1 [facility]) Lierin Teri [id number] Lierin Teri 04/22/2007 1 [facility] ([facility] Lierin Teri [id number] Lierin Teri OBGyn Episode No OBEpisode recorded.
== END 2024-08-18 11:50 | disposition home or self-care (01) ==
LOC: HO.HWS 11:32
PROVIDERS: PCP Internal Medicine; Visit Provider Obstetrics & Gynecology
DX: Z30.431 Encounter for routine checking of intrauterine contraceptive device (principal)
CPT/HCPCS: 99213

== ENCOUNTER → 2024-08-18 11:32 | Outpatient (BNVA) | payer OTHER, SELFPAY | PROVIDERS: PCP Internal Medicine; Visit Provider Obstetrics & Gynecology ==

== ENCOUNTER 2024-12-04 08:00 | Outpatient (RCR) | payer OTHER, SELFPAY ==
[2024-10-27 08:23] VITALS: BP 147/45; PULSE 58; RESP 16; TEMP 36.7; O2SAT 98
[2024-11-06 08:26] VITALS: BP 175/75; PULSE 76; RESP 16; TEMP 36.6; O2SAT 100
[2024-11-13 08:27] VITALS: BP 123/58; PULSE 62; RESP 16; TEMP 36.9; O2SAT 98
[2024-11-20 08:27] VITALS: BP 131/62; PULSE 59; RESP 18; TEMP 36.1; O2SAT 99
[2024-11-27 08:29] VITALS: BP 139/78; PULSE 60; RESP 16; TEMP 36.7; O2SAT 100
[2024-12-04 08:05] VITALS: BP 155/71; PULSE 80; RESP 16; TEMP 36.7; O2SAT 99
== END 2024-12-04 08:30 | disposition home or self-care (01) ==
LOC: HO.INF 08:00
PROVIDERS: Visit Provider Internal Medicine
DX: E61.1 Iron deficiency (principal)
CPT/HCPCS: 96365; 96374; J1756

== ENCOUNTER 2025-01-13 10:09 | Outpatient (AMB) | payer OTHER, SELFPAY ==
--- NOTE | 2025-01-13 10:29 | A.OFFVIS_ITS ---
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 Complaining of redness and irritation of the previous scar Last Pap/HPV was negative in 10/29 No previous screening Mammogram PFSH Medical History History of medical termination of Sore throat GUIDO I (cervical intraepithelial neoplasia I) Anemia Anxiety Depression Surgical History Hx of lymph node excision History of Family History Maternal Aunt Lung cancer Maternal Grandfather Lung cancer Maternal Grandmother Mental health disorder Substance use disorder Mother Mental health disorder High cholesterol Father Substance use disorder Social History Household Members: Spouse Housing: House Alcohol intake: current Alcohol intake frequency: holidays/special occasions only Patient Tobacco Use Status: Never used Tobacco e-Cigarette/Vaping Use: Never Used Second Hand Smoke Exposure: No Substance Use Type: Marijuana service: No Current occupational status: employed Cognitive needs: No Hearing needs: No Vision needs: No Female Reproductive History Menstrual Age of Menarche: 10 control method: progestin IUCD Review of Systems Const All systems reviewed & are unremarkable except as noted in HPI and below Card Reports as per HPI Resp Reports as per HPI GI Reports as per HPI and Reports no additional complaints Reports as per HPI Physical Exam Vital Signs: BMI result Body Mass Index 34.9 Const General: cooperative, healthy appearing and comfortable Chest Chest palpation & inspection: normal inspection of the chest and normal palpation of entire chest wall Breast/axilla inspection: normal inspection of the breasts and normal inspection of the axillae Breast/axilla palpation: normal palpation of the breasts, normal palpation of the axillae and no axillary lymphadenopathy Resp Effort & Inspection: normal respiratory effort Auscultation: clear to auscultation bilaterally Percussion: percussion normal Cardio Palpation: normal PMI Rate: regular rate Rhythm: regular rhythm Heart sounds: no murmurs and no rubs Peripheral pulses: Peripheral pulses 2+ throughout GI Inspection: Yes normal to inspection Palpation (GI): Soft to palpation, nontender, no guarding, not rigid and No hepatosplenomegaly present Percussion: Yes normal to percussion Auscultation: normal bowel sounds Rectal Exam - Female: deferred General: Yes bladder normal to palpation External Female Exam: No lesion Speculum Exam - Vagina: normal appearance of the vagina, normal palpation, normal vaginal discharge and not erythematous Speculum Exam - Cervix: normal appearance of the cervix and normal palpation Bimanual exam- vagina & uterus: normal bimanual exam, normal palpation, uterine size normal, bladder normal to palpation, consistency normal and normal palpation Bimanual Exam- Adnexa, other: normal adnexae, no masses and no tenderness Skin Other: Previous scar candidiasis Assessment & Plan Assessment & Plan (1) Well woman exam: Comment: GUIDO 1 in 01/26 10/29 co testing negative Code(s): Z01.419 - Encounter for gynecological examination (general) (routine) without abnormal findings Category: Medical Plan: Cotesting done. Mammogram ordered. Counseled the patient about the recommended dietary allowance of 1000 mg of Calcium & 600 IU of vitamin D. The patient was instructed to perform monthly self-breast exams and to schedule an annual exam in a year; All questions answered and the patient verbalized understanding. Instructed the patient to schedule annual exam in a year (2) Skin candidiasis: Code(s): B37.2 - Candidiasis of skin and nail Category: Medical Plan: The patient was instructed to keep the area dry, use hair blower after showering, use baby powder without Talc and Desitin cream in addition to applying lotrisone cream BID x5 days Orders: Orders MM tomosynthesis screening BI Today Z12.31 - Encounter for screening mammogram for malignant neoplasm of breast Medications: New clotrimazole-betamethasone 1-0.05 % 1 appl topical BID 45 grams 0RF 5 days Coding Level of Care Code Est Pt Level 3 (01009) Est Pt Prev Care 40-64y(94859) Diagnoses Well woman exam Z01.419 Skin candidiasis B37.2
[2025-01-13 10:30] VITALS: BP 104/60; BMI 34.9
== END 2025-01-13 11:06 | disposition home or self-care (01) ==
LOC: HO.HWS 10:10
PROVIDERS: PCP Internal Medicine; Visit Provider Obstetrics & Gynecology
DX: Z01.419 Encounter for gynecological examination (general) (routine) without abnormal findings (principal); B37.2 Candidiasis of skin and nail
CPT/HCPCS: 99213; 99396; 99459

== ENCOUNTER 2025-01-13 10:09 | Outpatient (REF) | payer OTHER, SELFPAY | END 2025-01-13 10:10 | disposition home or self-care (01) | LOC: HO.LNP 10:09 | PROVIDERS: PCP Internal Medicine; Visit Provider Obstetrics & Gynecology | DX: Z01.419 Encounter for gynecological examination (general) (routine) without abnormal findings (principal); B37.2 Candidiasis of skin and nail; Z11.51 Encounter for screening for human papillomavirus (HPV); Z12.31 Encounter for screening mammogram for malignant neoplasm of breast; Z00.00 Encounter for general adult medical examination without abnormal findings | CPT/HCPCS: 87626; 88175; 99212; 99396 ==

== ENCOUNTER → 2025-01-31 08:00 | Outpatient (BNV) | payer OTHER, SELFPAY | PROVIDERS: PCP Internal Medicine; Visit Provider Internal Medicine | DX: Z12.31 Encounter for screening mammogram for malignant neoplasm of breast (principal) | CPT/HCPCS: 77063; 77067 ==

== ENCOUNTER 2025-01-31 08:07 | Outpatient (REF) | payer OTHER, SELFPAY ==
--- NOTE | ~2025-01-31 | MM_ITS ---
EXAMINATION: MM SCREENING DIGITAL BREAST TOMOSYNTHESIS, BILATERAL CLINICAL INFORMATION: Screening. Asymptomatic. COMPARISON: Mammography: Comparison is made with available priors TECHNIQUE: Digital breast mammography with tomosynthesis is performed in both the craniocaudal and mediolateral oblique views along with computer-aided detection (CAD). FINDINGS: There are scattered areas of fibroglandular density. There are no significant masses, abnormal calcifications, or other abnormalities. MM/MM tomosynthesis screening BI IMPRESSION: No mammographic evidence of malignancy. ASSESSMENT: BI-RADS Category 1: Negative RECOMMENDATION: Routine annual mammography screening. 1 year F/U This examination should not preclude the clinical evaluation of a suspicious palpable abnormality. This patient's information was entered into a reminder system with a target due date for their next mammogram. Electronically signed by: So Dietz DO 02/03/2025 11:43 AM EDT
== END 2025-01-31 08:08 | disposition home or self-care (01) ==
LOC: HO.MAMMO 08:07
PROVIDERS: PCP Internal Medicine; Visit Provider Obstetrics & Gynecology
DX: Z12.31 Encounter for screening mammogram for malignant neoplasm of breast (principal)
CPT/HCPCS: 77063; 77067; 81003

== ENCOUNTER 2025-01-31 09:08 | Outpatient (AMB) | payer OTHER, SELFPAY ==
[2025-01-31 09:12] VITALS: BP 104/62; PULSE 68; TEMP 36.8; O2SAT 98; BMI 33.6
--- NOTE | 2025-01-31 09:12 | AM.OFFWIN_ITS ---
Intake Vital Signs 01/31/25 09:12 Height 5 ft 5 in Weight 202 lb BMI 33.6 BP 104/62 Blood Pressure Location Lt brachial Position Sitting Pulse 68 Pulse Source Pulse Oximeter Temp 98.2 F Temp Source Oral Pulse Oximetry (%) 98 Intake Visit Reasons: EP Possible UTI, Abdominal pain Intake Note: pt is here for possible uti, abd pain, over 1 week Patient Tobacco Use Status: Never used Tobacco Allergies escitalopram Adverse Reaction (Severe, Verified 01/31/25 09:30) Palpitations bupropion (From Wellbutrin) Adverse Reaction (Verified 01/31/25 09:30) Chest discomfort, abdominal cramping sulfa Allergy (Unknown, Uncoded 01/13/25 10:33) hives control pills Adverse Reaction (Severe, Uncoded 01/13/25 10:33) vomiting Medication List - Last Reconciled 01/31/25 by Laura Bond, [employer]- clotrimazole-betamethasone 1-0.05 % 1 appl topical BID 5 days levonorgestrel (Mirena) intrauterine Do you need a note to return to daycare/school/sports/work: No HPI HPI Comments History of Present Illness Details History of Present Illness The patient is a 39-year-old female presenting with concerns for a urinary tract sx and associated abdominal pain. Urinary Tract Infection (UTI): - Onset one week ago with urgency and lo wer abdominal pain. - Reports insufficient fluid intake and mild hematuria. - Last night experienced back pain and p ossible fever, though not measured. Endometriosis: - Has previously been diagnosed with end ometriosis. - Experiencing cyclical pelvic pain. History of Kidney Stones: - Past occurrences of kidney stones with significant pain reported. Review of Systems - Genitourinary: Reports urgency, possib le fever, mild hematuria; Denies vaginal discharge or itching. Has IUD. No chance of . No STD concern - Musculoskeletal: Reports lower back pa in. - Neurological: Denies any neurological deficits. - General: Reports stress affecting self -care. Physical Exam General: Well developed, well nourished, in no acute distress. Appears stated age. Head: Normocephalic, atraumatic. Eyes: Pupils are equal, round and reactive to light and accommodation. Conjunctivae are clear. Heart: Regular rate and rhythm. No murmurs, click, rubs or gallops are noted. Abdomen: Tender, but not anything crazy. Bowel sounds present in all quadrants. The abdomen is soft, nontender,no cvat bilat. Psych: Mood and affect appropriate Results UA as below Discussion Notes I discussed with the patient that the clinical presentation is highly suggestive of a urinary tract infection. We reviewed the necessity of a urine culture to identify the specific bacteria for effective antibiotic treatment. I explained that pending culture results, an empirical treatment with antibiotic would be initiated due to its efficacy against common uropathogens, particularly Escheric hia coli. I emphasized the importance of increasing fluid intake to help flush the urinary system, recommending acidic beverages such as cranberry juice. Additionally, I mentioned the potential side effects of the medications and measures to avoid them. I advised her on the use of pyridium to alleviate urinary discomfort, highlighting that it could cause urine discoloration without treating the infection itself. The need for adherence to prescribed medications and self-monitoring for symptom improvement was stressed. Follow-up actions included portal activation for timely test result review and communication with healthcare providers. Patient was given time to ask questions. All questions were answered to their satisfaction. Assessment and Plan 1. Urinary Tract Infection (UTI) suspect ed - Empirically treat. - Send urine culture. Change AB PRN - Prescribe pyridium for pain management . - Advise hydration and cranberry juice i ntake. 2. Endometriosis - Monitor symptoms. 3. History of Kidney Stones - Acknowledge history, no active treatme nt. Patient Instructions - Take AB as prescribed. - Drink plenty of fluids, especially ship scraper nberry juice. - Watch for any changes or worsening of symptoms. - Use pyridium for urinary pain if neede d. - Sign up for the patient portal to acce ss test results. - She will be called w/ results once angle il and new AB sent PRN Consent Patient was informed and verbally consented to the use of an ambient scribe for clinic note documentation during this visit. [facility] Medical History History of medical termination of Sore throat GUIDO I (cervical intraepithelial neoplasia I) Anemia Anxiety Depression Surgical History Hx of lymph node excision History of Family History Maternal Aunt Lung cancer Maternal Grandfather Lung cancer Maternal Grandmother Mental health disorder Substance use disorder Mother Mental health disorder High cholesterol Father Substance use disorder Social History Household Members: Spouse Housing: House Alcohol intake: current Alcohol intake frequency: holidays/special occasions only Patient Tobacco Use Status: Never used Tobacco e-Cigarette/Vaping Use: Never Used Second Hand Smoke Exposure: No Substance Use Type: Marijuana service: No Current occupational status: employed Cognitive needs: No Hearing needs: No Vision needs: No Female Reproductive History Menstrual Age of Menarche: 10 Physical Exam Vital Signs: Last Vital Signs Temp 98.2 F 01/31/25 09:12 Pulse 68 01/31/25 09:12 BP 104/62 01/31/25 09:12 Pulse Ox 98 01/31/25 09:12 BMI result Body Mass Index 33.6 Results AMB Urinalysis, Automated UA Leukoctes 500 Bozena/uL Last Edit by Sachin Simons CMA on 01/31/25 09:3 9 UA Nitrite Negative Last Edit by Sachin Simons CMA on 01/31/25 09:39 UA Urobilinogen 0.2 mg/dL Last Edit by Sachin Simons CMA on 01/31/25 09 :39 UA Protein 30 mg/dL Last Edit by Sachin Simons CMA on 01/31/25 09:39 UA pH 6.0 Last Edit by Sachin Simons CMA on 01/31/25 09:39 UA Blood 200 Tommy/uL Last Edit by Sachin Simons CMA on 01/31/25 09:39 UA Specific [place] 1.015 Last Edit by Sachin Simons CMA on 01/31/25 09:39 UA Ketone Negative Last Edit by Sachni Simons CMA on 01/31/25 09:39 UA Bilirubin 0 mg/dL Last Edit by Sachin Simons CMA on 01/31/25 09:39 UA Glucose 0 mg/dL Last Edit by Sachin Simons CMA on 01/31/25 09:39 Assessment & Plan Assessment & Plan (1) UTI symptoms: Code(s): R39.9 - Unspecified symptoms and signs involving the genitourinary system (2) Endometriosis: Code(s): N80.9 - Endometriosis, unspecified (3) History of nephrolithiasis: Code(s): Z87.442 - Personal history of urinary calculi Plan . Orders: Orders AMB Urinalysis Automated Today Z13.9 - Encounter for screening, unspecified Urine Culture Today R39.9 - Unspecified symptoms and signs involving the genitourinary system Medications: New cefuroxime axetil 500 mg PO BID 10 tabs 0RF phenazopyridine (Pyridium) 200 mg PO TID PRN 6 tabs 0RF pain 6 doses Coding Level of Care Code Est Pt Level 4 (18227) Diagnoses UTI symptoms R39.9 Endometriosis N80.9 History of nephrolithiasis Z87.442
== END 2025-01-31 09:39 | disposition home or self-care (01) ==
PROVIDERS: PCP Internal Medicine; Visit Provider Nurse Practitioner Family
DX: R39.9 Unspecified symptoms and signs involving the genitourinary system (principal); N80.9 Endometriosis, unspecified; Z87.442 Personal history of urinary calculi; Z13.9 Encounter for screening, unspecified

== ENCOUNTER 2025-01-31 09:33 | Outpatient (REF) | payer OTHER, SELFPAY | END 2025-01-31 09:34 | disposition home or self-care (01) | LOC: HO.LAB 09:33 | PROVIDERS: Visit Provider Nurse Practitioner Family | DX: R39.9 Unspecified symptoms and signs involving the genitourinary system (principal) | CPT/HCPCS: 87086; 87088; 87186 ==